=== PATIENT | male | born 1995 | race Caucasian/White ===

== ENCOUNTER 2016-09-17 18:06 | Inpatient (IN) | payer BC, OTHER ==
[~2016-09-17] VITALS: Ht 188 cm; Wt 160.6 kg
[~2016-09-17 18:06] MED LIST: ALBU1AER9 INH
[2016-09-17] MEDS ORDERED: SODIUM CHLORIDE 0.9% 1000ML 2,000 ML IV STA (18:34)
[2016-09-17] MEDS ORDERED: CALC500C3 PO (18:43)
[2016-09-17] MEDS ORDERED: PROAIR INH (18:43)
[2016-09-17] MEDS ORDERED: LSN40 PO (18:43)
[2016-09-17] MEDS ORDERED: HYDR25TA5 PO (18:43)
[2016-09-17] MEDS ORDERED: ONDANSETRON INJ 2 MG/ML 2 ML VIAL IV PRN ×2 (18:45→21:30)
--- NOTE | 2016-09-17 18:47 | EMERGENCY ROOM VISIT NOTE ---
History Report prepared by Almaz: Scotty Hairston Under the Supervision of: Dr. Grant Leung M.D. First contact with patient: 18:14 Chief Complaint: VOMITING Stated Complaint: VOMITING, STOMACH CRAMPS Nursing Triage Summary: Diarrhea. Puking. Can't hold nothing down. Cramps in the stomach. History of Present Illness The patient is a 20 year old male who presents to the Emergency Room with complaints of intermittent diarrhea beginning five days ago. The patient states that there is no blood in his stool; they are just very watery. He reports that for the past 24 hours he has had nausea, vomiting, feeling of dehydration, and cramping abdominal pain. The patient notes that his discomfort fluctuates from a 6/10 to a 10/10 in severity. He states that he has not eaten anything out of the ordinary. The patient reports that he ate chicken salad, but that has not given him issues before. He notes that he has not taken anything for his discomfort other than antacids. The patient states that the antacids have not helped his symptoms. He denies a history of stomach surgeries or problems. The patient notes that he does take blood pressure medication. He reports that his mother had diarrhea and stomach cramping 4 days ago, but it quickly resolved. Source of History: patient Onset: five days ago Position: abdomen Symptom Intensity: 6/10-10/10 Quality: other (diarrhea) Timing: intermittent Associated Symptoms: + nausea, + vomiting, + abdominal pain, No hematochezia Note: Associated symptoms: dehydrated Review of Systems See HPI for pertinent positives & negatives. A total of 10 systems reviewed and were otherwise negative. Past Medical & Surgical Medical Problems: (1) Asthma Family History Cancer Diabetes mellitus Heart disease Hypertension Lung disease Social History Smoking Status: Never Smoker Occupation Status: employed Current/Historical Medications Scheduled Calcium Carbonate (Tums), 1,000 MG PO PRN Hydrochlorothiazide (Hydrochlorothiazide), 25 MG PO DAILY Lisinopril (Lisinopril), 40 MG PO DAILY Scheduled PRN [Proair], 2 PUFF INH Q4 PRN for SOB/Wheezing Allergies Coded Allergies: No Known Allergies (Unverified , 11/14/09) Physical Exam Vital Signs Date Time Temp Pulse Resp B/P (MAP) Pulse Ox O2 Delivery O2 Flow Rate FiO2 09/17/16 18:08 36.8 98 20 138/74 95 Room Air Physical Exam GENERAL: Patient is in no acute distress. HEENT: No acute trauma, normocephalic atraumatic, mucous membranes moist, no nasal congestion, no scleral icterus. NECK: No stridor, no adenopathy, no meningismus, trachea is midline. LUNGS: Clear to auscultation bilaterally, no wheeze, no rhonchi, breath sounds equal. HEART: Mildly tachycardic rate and rhythm, no murmur. ABDOMEN: Soft, diffusely mildly tender, bowel sounds positive, no hernias, no peritonitis. EXTREMITIES: No cyanosis or edema, full range of motion of all the joints without pain or difficulty, no signs for acute trauma. NEUROLOGIC: Oriented x 3, no acute motor or sensory deficits, no focal weakness. SKIN: No rash, no jaundice, no diaphoresis. Medical Decision & Procedures ER Provider Diagnostic Interpretation: X-ray results as stated below per interpretation by me and the radiologist: ABDOMEN 2VIEW W/PA CHEST RTN HISTORY: 20 years-old Male abdominal pain COMPARISON: Chest radiograph 10/22/2014 TECHNIQUE: PA view of the chest with upright and supine views of the abdomen FINDINGS: Cardiomediastinal and hilar silhouettes are within normal limits. No pneumothorax, pleural effusion or focal airspace consolidation. Bones of the chest appear grossly intact. There is no pneumoperitoneum on the upright projection. Bowel gas pattern is nonobstructive with a few air-filled nondilated loops of small bowel in the right mid abdomen. No urolithiasis is identified. No significant degenerative changes or fracture. IMPRESSION: Unremarkable acute abdominal series radiographs. The above report was generated using voice recognition software. It may contain grammatical, syntax or spelling errors. Electronically signed by: Gregory Chase M.D. 09/17/2016 8:17 PM Dictated Date/Time: 09/17/2016 8:14 PM Laboratory Results 09/17/16 18:51 Red Blood Count 6.05, Mean Corpuscular Volume 78.7, Mean Corpuscular Hemoglobin 28.6, Mean Corpuscular Hemoglobin Concent 36.3, Mean Platelet Volume 9.8, Neutrophils (%) (Auto) 71.2, Lymphocytes (%) (Auto) 19.8, Monocytes (%) (Auto) 8.0, Eosinophils (%) (Auto) 0.0, Basophils (%) (Auto) 0.2, Neutrophils # (Auto) 8.41, Lymphocytes # (Auto) 2.34, Monocytes # (Auto) 0.95, Eosinophils # (Auto) 0.00, Basophils # (Auto) 0.02 09/17/16 18:51 Test 09/17/16 18:51 White Blood Count 11.82 K/uL (4.8-10.8) Red Blood Count 6.05 M/uL (4.7-6.1) Hemoglobin 17.3 g/dL (14.0-18.0) Hematocrit 47.6 % (42-52) Mean Corpuscular Volume 78.7 fL (80-100) Mean Corpuscular Hemoglobin 28.6 pg (25-34) Mean Corpuscular Hemoglobin Concent 36.3 g/dl (32-36) Platelet Count 288 K/uL (130-400) Mean Platelet Volume 9.8 fL (7.4-10.4) Neutrophils (%) (Auto) 71.2 % Lymphocytes (%) (Auto) 19.8 % Monocytes (%) (Auto) 8.0 % Eosinophils (%) (Auto) 0.0 % Basophils (%) (Auto) 0.2 % Neutrophils # (Auto) 8.41 K/uL (1.4-6.5) Lymphocytes # (Auto) 2.34 K/uL (1.2-3.4) Monocytes # (Auto) 0.95 K/uL (0.11-0.59) Eosinophils # (Auto) 0.00 K/uL (0-0.5) Basophils # (Auto) 0.02 K/uL (0-0.2) RDW Standard Deviation 38.1 fL (36.4-46.3) RDW Coefficient of Variation 13.5 % (11.5-14.5) Immature Granulocyte % (Auto) 0.8 % Immature Granulocyte # (Auto) 0.10 K/uL (0.00-0.02) Anion Gap 11.0 mmol/L (3-11) Est Creatinine Clear Calc Drug Dose 55.6 ml/min Estimated GFR () 29.3 Estimated GFR (Non- 25.3 BUN/Creatinine Ratio 8.4 (10-20) Calcium Level 10.5 mg/dl (8.5-10.1) Total Bilirubin 0.8 mg/dl (0.2-1) Aspartate Amino Transf (AST/SGOT) 33 U/L (15-37) Alanine Aminotransferase (ALT/SGPT) 53 U/L (12-78) Alkaline Phosphatase 82 U/L (45-117) Total Protein 8.8 gm/dl (6.4-8.2) Albumin 4.7 gm/dl (3.4-5.0) Globulin 4.1 gm/dl (2.5-4.0) Albumin/Globulin Ratio 1.1 (0.9-2) Lipase 113 U/L (73-393) Date/Time Source Procedure Growth Status 09/17/16 18:49 Stool C.difficile Toxin B Gene (PCR) - Final No C. difficile toxin B gene detected Complete Laboratory results reviewed by me. Medications Administered Medications (Trade) Dose Ordered Sig/Heide Route Start Time Stop Time Status Last Admin Dose Admin Sodium Chloride 2,000 ml @ 999 mls/hr Q2H1M STAT IV 09/17/16 18:34 09/17/16 20:34 09/17/16 19:36 999 MLS/HR ED Course 1816: The patient was evaluated in room A12B by the resident under my supervision. A complete history and physical exam was performed. 1834: Ordered Sodium Chloride 2000 ml @ 999 mls/hr IV 1837: I reevaluated the patient and performed a physical exam. 1845: Ordered Zofran Inj 4 mg IV 1937: Upon reexamination the patient is resting. I discussed results and treatment plan with the patient. He verbalizes agreement and understanding. 1950: The resident discussed the patient's case with Dr. Michele, [facility] Hospitalist. The patient will be evaluated for further treatment. Medical Decision Differential diagnosis includes: dehydration, C-Diff, electrolyte imbalance, renal failure, bacterial intestinal infection, viral illness, food borne illness There is a mild leukocytosis, this could be consistent with infection or possibly just his vomiting and diarrhea. No anemia. Renal panel testing shows acute renal failure, potassium is normal. There was no hepatitis. Stool cultures are pending, stool C. difficile test is negative. Obstruction series shows no pneumonia or bowel obstruction, there is no free air. On exam, the patient was not febrile or toxic. There was no peritonitis. The patient received IV Zofran, IV saline. Given the findings of acute renal failure, admission/observation is warranted. Escherichia coli colitis is a consideration especially with the acute renal failure. Further care in the hospital is required. I spoke with the patient and the case technician. The on-call hospitalist was consulted. Consults Time Called: 1941 Consulting Physician: Eryn Rapp Hospitalist Returned Call: 1949 The resident discussed the patient's case with Eryn Rapp. The patient will be evaluated for further treatment. Impression Primary Impression: Acute renal failure Additional Impressions: Dehydration Vomiting and diarrhea Scribe Attestation The scribe's documentation has been prepared under my direction and personally reviewed by me in its entirety. I confirm that the note above accurately reflects all work, treatment, procedures, and medical decision making performed by me. Departure Information Dispostion Being Evaluated By Hospitalist Referrals Brigido Braswell III, M.D. (PCP) Patient Instructions My [facility] Problem Qualifiers
[2016-09-17 19:00] LABS: BASO % 0.2 %; BASO ABS # 0.02 K/uL (0-0.2); COMPLETE YES; HEMATOCRIT 47.6 % (42-52); IG% 0.8 %; LYMPH % 19.8 %; LYMPH ABS # 2.34 K/uL (1.2-3.4); MEAN CELL VOLUME 78.7 fL (80-100); MEAN CORPUSCULAR HEMOGLOBIN 28.6 pg (25-34); MEAN CORPUSCULAR HGB CONC 36.3 g/dl (32-36); MEAN PLATELET VOLUME 9.8 fL (7.4-10.4); NEUT % 71.2 %; PLATELET COUNT 288 K/uL (130-400); RED BLOOD COUNT 6.05 M/uL (4.7-6.1); WHITE BLOOD COUNT 11.82 K/uL (4.8-10.8)
[2016-09-17 19:19] LABS: BUN/CREATININE RATIO 8.4 (10-20); CALCIUM 10.5 mg/dl (8.5-10.1); CREATININE 3.3 mg/dl (0.60-1.40)
[2016-09-17 19:22] LABS: ALB/GLOB RATIO 1.1 (0.9-2)
--- NOTE | 2016-09-17 20:01 | EMERGENCY ROOM VISIT NOTE ---
History First contact with patient: 18:14 Chief Complaint: VOMITING Stated Complaint: VOMITING, STOMACH CRAMPS Nursing Triage Summary: Diarrhea. Puking. Can't hold nothing down. Cramps in the stomach. History of Present Illness The patient is a 20 year old male who presents to the Emergency Room with complaints of N/V and diarrhea. Patient reports 5 day hx of progressive non- bloody diarrhea and associated generalized abdominal cramping ranging from 6-8/ 10. He also reports N/V as of today. He reports mother also had diarrheal symptoms 5 days ago which has since resolved. + subjective fever/chills Review of Systems Pt denies headache, change in vision, fevers, chest pain, shortness of breath, pain with urination, and melena. Past Medical/Surgical History Medical Problems: (1) Acute kidney injury (2) Asthma (3) Hypertension (4) Seizure disorder Family History Cancer Diabetes mellitus Heart disease Hypertension Lung disease Social History Smoking Status: Never Smoker Occupation Status: employed Current/Historical Medications Scheduled Calcium Carbonate (Tums), 1,000 MG PO PRN Ciprofloxacin (Ciprofloxacin HCl), 500 MG PO BID Hydrochlorothiazide (Hydrochlorothiazide), 25 MG PO DAILY Lisinopril (Lisinopril), 40 MG PO DAILY Scheduled PRN [Proair], 2 PUFF INH Q4 PRN for SOB/Wheezing Physical Exam Vital Signs Date Time Temp Pulse Resp B/P (MAP) Pulse Ox O2 Delivery O2 Flow Rate FiO2 09/17/16 20:40 71 18 118/57 97 Room Air 09/17/16 18:08 36.8 98 20 138/74 95 Room Air Physical Exam GENERAL: alert, no distress, EYE EXAM: normal conjunctiva, PERRL and EOM's grossly intact OROPHARYNX: no exudate, no erythema, lips, buccal mucosa, and tongue normal and mucous membranes are moist NECK: supple, no nuchal rigidity, no adenopathy, non-tender LUNGS: Clear to auscultation. Normal chest wall mechanics HEART: tachycardic, no murmurs, S1 normal and S2 normal ABDOMEN: abdomen soft, generalized tenderness, normo-active bowel sounds, no masses, no rebound or guarding. SKIN: no rashes and no bruising UPPER EXTREMITIES: upper extremities are grossly normal. LOWER EXTREMITIES: No pitting edema. NEURO EXAM: Normal sensorium, cranial nerves II-XII grossly intact, normal speech, no gross weakness of arms, no gross weakness of legs. Medical Decision & Procedures Laboratory Results Test 09/17/16 18:51 09/17/16 21:29 Immature Granulocyte % (Auto) 0.8 % White Blood Count 11.82 K/uL (4.8-10.8) Red Blood Count 6.05 M/uL (4.7-6.1) Hemoglobin 17.3 g/dL (14.0-18.0) Hematocrit 47.6 % (42-52) Mean Corpuscular Volume 78.7 fL (80-100) Mean Corpuscular Hemoglobin 28.6 pg (25-34) Mean Corpuscular Hemoglobin Concent 36.3 g/dl (32-36) Platelet Count 288 K/uL (130-400) Mean Platelet Volume 9.8 fL (7.4-10.4) Neutrophils (%) (Auto) 71.2 % Lymphocytes (%) (Auto) 19.8 % Monocytes (%) (Auto) 8.0 % Eosinophils (%) (Auto) 0.0 % Basophils (%) (Auto) 0.2 % Neutrophils # (Auto) 8.41 K/uL (1.4-6.5) Lymphocytes # (Auto) 2.34 K/uL (1.2-3.4) Monocytes # (Auto) 0.95 K/uL (0.11-0.59) Eosinophils # (Auto) 0.00 K/uL (0-0.5) Basophils # (Auto) 0.02 K/uL (0-0.2) Immature Granulocyte # (Auto) 0.10 K/uL (0.00-0.02) Total Bilirubin 0.8 mg/dl (0.2-1) Aspartate Amino Transf (AST/SGOT) 33 U/L (15-37) Alanine Aminotransferase (ALT/SGPT) 53 U/L (12-78) Alkaline Phosphatase 82 U/L (45-117) Total Protein 8.8 gm/dl (6.4-8.2) Albumin 4.7 gm/dl (3.4-5.0) Globulin 4.1 gm/dl (2.5-4.0) Albumin/Globulin Ratio 1.1 (0.9-2) Lipase 113 U/L (73-393) Lab Scanned Report Lab Referral [id number] Date/Time Source Procedure Growth Status 09/17/16 18:49 Stool C.difficile Toxin B Gene (PCR) - Final No C. difficile toxin B gene detected Complete Medications Administered Medications (Trade) Dose Ordered Sig/Heide Route Start Time Stop Time Status Last Admin Dose Admin Sodium Chloride 2,000 ml @ 999 mls/hr Q2H1M STAT IV 09/17/16 18:34 09/17/16 20:34 DC 09/17/16 19:36 999 MLS/HR Medical Decision This is 20 yo M p/w n/v diarrhea, and abdominal discomfort CBC Wt Ct 11.82 BMP Cr 3.3 BUN 28 Abdominal XR Unremarkable Based on presentation along with leukocytosis, gastrointestinal infection is likely either viral or bacterial. C Diff toxin was negative. Abdominal XR rules out obstruction as etiology. CABRERA with Cr of 3.3 is likely prerenal based on lack previous Kidney issues in addition to probably dehydration due to vomiting , diarrhea . Given IV NS Given IV Zofran Case was discussed with hospitalist, Dr Michele who agreed to evaluate the patient for admission and further management Impression Primary Impression: CABRERA (acute kidney injury) Additional Impression: Nausea, vomiting, and diarrhea Departure Information Dispostion Admitted as an inpatient Prescriptions Ciprofloxacin (Ciprofloxacin HCl) 500 Mg Tab 500 MG PO BID for 5 Days, #10 TAB Prov: Rita Armstrong M.D. 09/19/16 Referrals Brigido Braswell III, M.D. (PCP) Patient Instructions My [facility] Problem Qualifiers
--- NOTE | 2016-09-17 20:18 | DIAGNOSTIC IMAGING REPORT ---
ABDOMEN 2VIEW W/PA CHEST RTN HISTORY: 20 years-old Male abdominal pain COMPARISON: Chest radiograph 10/22/2014 TECHNIQUE: PA view of the chest with upright and supine views of the abdomen FINDINGS: Cardiomediastinal and hilar silhouettes are within normal limits. No pneumothorax, pleural effusion or focal airspace consolidation. Bones of the chest appear grossly intact. There is no pneumoperitoneum on the upright projection. Bowel gas pattern is nonobstructive with a few air-filled nondilated loops of small bowel in the right mid abdomen. No urolithiasis is identified. No significant degenerative changes or fracture. IMPRESSION: Unremarkable acute abdominal series radiographs. The above report was generated using voice recognition software. It may contain grammatical, syntax or spelling errors. Electronically signed by: Gregory Chase M.D. 09/17/2016 8:17 PM Dictated Date/Time: 09/17/2016 8:14 PM
--- NOTE | 2016-09-17 21:27 | History and Physical ---
History & Physical Date & Time of Service: Sep 17, 2016 at 21:27 Chief Complaint: Vomiting, Stomach Cramps Primary Care Physician: Brigido Braswell III, M.D. History of Present Illness Source: patient, clinic records, hospital records 20 [address]O male followed by Dr[address] Braswell. History of hypertension and other problems noted below. Became ill 4 days prior to admission with loose stools followed by nausea and vomiting. Had some intermittent crampy abdominal discomfort. No rectal bleeding. Noted chills and sweats, but no fever. . Past Medical/Surgical History Medical Problems: (1) Asthma (2) Hypertension (3) Seizures . Family History Cancer Diabetes mellitus Heart disease Hypertension Lung disease Social History Smoking Status: Never Smoker Alcohol Use: none Occupational Status: employed [employer]Drug [employer] History of MDRO: No Allergies Coded Allergies: No Known Allergies (Unverified , 11/14/09) Home Medications Scheduled Calcium Carbonate (Tums), 1,000 MG PO PRN Hydrochlorothiazide (Hydrochlorothiazide), 25 MG PO DAILY Lisinopril (Lisinopril), 40 MG PO DAILY Scheduled PRN [Proair], 2 PUFF INH Q4 PRN for SOB/Wheezing Review of Systems Constitutional: + chills, + sweats, No fever, No weight loss Eyes: No worsening of vision, No problem reported ENT: No nasal symptoms, No sore throat Respiratory: No cough, No shortness of breath Cardiovascular: No chest pain, No edema Abdomen: + problem reported (as noted above in HPI) Musculoskeletal: + muscle pain (cramps), No joint pain Genitourinary - Male: No hematuria, No dysuria Neurologic: + problem reported (headache) Endocrine: No excessive thirst, No excessive urination Hematologic / Lymphatic: No abnormal bleeding/bruising, No swollen lymph nodes Integumentary: No rash, No new/changing skin lesions Physical Exam Vital Signs Date Time Temp Pulse Resp B/P (MAP) Pulse Ox O2 Delivery O2 Flow Rate FiO2 09/17/16 20:40 71 18 118/57 97 Room Air 09/17/16 18:08 36.8 98 20 138/74 95 Room Air General Appearance: WD/WN, no apparent distress Head: normocephalic, atraumatic Eyes: normal inspection, PERRL, EOMI, sclerae normal ENT: hearing grossly normal, + nasal congestion Neck: supple, no adenopathy, thyroid normal, no JVD, trachea midline Respiratory/Chest: lungs clear, no respiratory distress, no accessory muscle use Cardiovascular: regular rate, rhythm, no edema, no gallop, no JVD, no murmur, normal peripheral pulses Abdomen/GI: normal bowel sounds, non tender, soft, no organomegaly, no pulsatile mass Extremities/Musculoskelatal: no calf tenderness, no pedal edema Neurologic/Psych: doctor of osteopathy II-XII nml as tested (ANANYA ROSAS), alert, normal mood/ affect, oriented x 3 Skin: normal color, warm/dry, no rash Lymphatic: no adenopathy Diagnostics Laboratory Results Results Past 24 Hours Test 09/17/16 18:51 Range/Units White Blood Count 11.82 4.8-10.8 K/uL Red Blood Count 6.05 4.7-6.1 M/uL Hemoglobin 17.3 14.0-18.0 g/dL Hematocrit 47.6 42-52 % Mean Corpuscular Volume 78.7 80-100 fL Mean Corpuscular Hemoglobin 28.6 25-34 pg Mean Corpuscular Hemoglobin Concent 36.3 32-36 g/dl Platelet Count 288 130-400 K/uL Mean Platelet Volume 9.8 7.4-10.4 fL Neutrophils (%) (Auto) 71.2 % Lymphocytes (%) (Auto) 19.8 % Monocytes (%) (Auto) 8.0 % Eosinophils (%) (Auto) 0.0 % Basophils (%) (Auto) 0.2 % Neutrophils # (Auto) 8.41 1.4-6.5 K/uL Lymphocytes # (Auto) 2.34 1.2-3.4 K/uL Monocytes # (Auto) 0.95 0.11-0.59 K/uL Eosinophils # (Auto) 0.00 0-0.5 K/uL Basophils # (Auto) 0.02 0-0.2 K/uL RDW Standard Deviation 38.1 36.4-46.3 fL RDW Coefficient of Variation 13.5 11.5-14.5 % Immature Granulocyte % (Auto) 0.8 % Immature Granulocyte # (Auto) 0.10 0.00-0.02 K/uL Sodium Level 134 136-145 mmol/L Potassium Level 4.0 3.5-5.1 mmol/L Chloride Level 98 98-107 mmol/L Carbon Dioxide Level 25 21-32 mmol/L Anion Gap 11.0 3-11 mmol/L Blood Urea Nitrogen 28 7-18 mg/dl Creatinine 3.30 0.60-1.40 mg/dl Est Creatinine Clear Calc Drug Dose 55.6 ml/min Estimated GFR () 29.3 Estimated GFR (Non- 25.3 BUN/Creatinine Ratio 8.4 10-20 Random Glucose 97 70-99 mg/dl Calcium Level 10.5 8.5-10.1 mg/dl Total Bilirubin 0.8 0.2-1 mg/dl Aspartate Amino Transf (AST/SGOT) 33 15-37 U/L Alanine Aminotransferase (ALT/SGPT) 53 12-78 U/L Alkaline Phosphatase 82 45-117 U/L Total Protein 8.8 6.4-8.2 gm/dl Albumin 4.7 3.4-5.0 gm/dl Globulin 4.1 2.5-4.0 gm/dl Albumin/Globulin Ratio 1.1 0.9-2 Lipase 113 73-393 U/L Microbiology Results 09/17/16 C.difficile Toxin B Gene (PCR) - Final, Complete No C. difficile toxin B gene detected 09/17/16 Shiga Toxin Test, Resulted Pending 09/17/16 Stool Culture, Resulted Pending Diagnostic Radiology ABDOMEN 2VIEW W/PA CHEST RTN HISTORY: 20 years-old Male abdominal pain COMPARISON: Chest radiograph 10/22/2014 TECHNIQUE: PA view of the chest with upright and supine views of the abdomen FINDINGS: Cardiomediastinal and hilar silhouettes are within normal limits. No pneumothorax, pleural effusion or focal airspace consolidation. Bones of the chest appear grossly intact. There is no pneumoperitoneum on the upright projection. Bowel gas pattern is nonobstructive with a few air-filled nondilated loops of small bowel in the right mid abdomen. No urolithiasis is identified. No significant degenerative changes or fracture. IMPRESSION: Unremarkable acute abdominal series radiographs. The above report was generated using voice recognition software. It may contain grammatical, syntax or spelling errors. Electronically signed by: Gregory Chase M.D. 09/17/2016 8:17 PM Dictated Date/Time: 09/17/2016 8:14 PM . Impression Assessment and Plan ACUTE KIDNEY INJURY Serum creatinine 3.3. No history of CKD. Probably due to volume depletion secondary to diarrhea, diuretic therapy, warm weather. IV fluids. Follow. DIARRHEA Check stools for C diff, routine enteric pathogens. HYPERTENSION Hold HCTZ and lisinopril. Follow and titrate Rx. VTE PROPHYLAXIS SQ heparin. Ambulate. DISPOSITION Expected discharge to home. Ambulate. . VTE Prophylaxis Given or contraindicated: Unfractionated heparin SQ
[2016-09-17 22:24] VITALS: BP 129/70; PULSE 72; TEMP 36.6; O2SAT 96; Ht 188 cm; Wt 160.6 kg
[2016-09-18 00:30] VITALS: O2SAT 96
[2016-09-18 07:31] VITALS: BP 147/64; PULSE 61; TEMP 36.8; O2SAT 95
[2016-09-18 07:38] LABS: HEMATOCRIT 44.3 % (42-52); MEAN CELL VOLUME 79.4 fL (80-100); MEAN CORPUSCULAR HEMOGLOBIN 27.1 pg (25-34); MEAN CORPUSCULAR HGB CONC 34.1 g/dl (32-36); MEAN PLATELET VOLUME 9.5 fL (7.4-10.4); PLATELET COUNT 250 K/uL (130-400); RED BLOOD COUNT 5.58 M/uL (4.7-6.1); WHITE BLOOD COUNT 9.34 K/uL (4.8-10.8)
[2016-09-18 07:46] LABS: INR 1.1 (0.9-1.1); PARTIAL THROMBOPLASTIN RATIO 1.2; PROTHROMBIN TIME (PATIENT) 11.3 SECONDS (9.0-12.0)
[2016-09-18 08:00] VITALS: O2SAT 95
[2016-09-18 08:16] LABS: BUN/CREATININE RATIO 15.4 (10-20); CALCIUM 9.1 mg/dl (8.5-10.1); CREATININE 1.6 mg/dl (0.60-1.40); POTASSIUM 3.4 mmol/L (3.5-5.1)
[2016-09-18] MEDS ORDERED: HEPARIN SOD 5000 UNIT/0.5 ML CARP SQ SCH (09:00)
[2016-09-18] MEDS ORDERED: POTASSIUM CHLORIDE 10 MEQ TABCR PO ONE (12:00)
[2016-09-18] MEDS: NSS + 20MEQ KCL 1000ML 1,000 ML IV SCH ×2 (12:25→19:39)
--- NOTE | 2016-09-18 13:59 | Clinical Documentation Query ---
QUERY 1 OF [address] ESPOSITO, In your clinical opinion is this patient being managed for: ( ) morbid obesity with BMI 45.4 ( ) Other explanation of clinical findings (Please Explain) ( ) Unable to determine (Please Define) ( x ) Need to Discuss ( ) Not Agree BMI: A significantly high (>40) or significantly low (<19) BMI will impact the severity of illness and risk of mortality of your patient. However, the physician must document a correlating diagnosis in the medical record. QUERY 2 OF 2 In your clinical opinion is this patient being managed for: (x ) Gastroenteritis/viral gastroenteritis ( ) Other explanation of clinical findings (Please Explain) ( ) Unable to determine (Please Define) ( ) Need to Discuss ( ) Not Agree The medical record reflects the following clinical findings, treatment, and risk factors. Clinical Indicators: 20 yo male presenting with vomiting and diarrhea, stomach cramps. Mother also sick 4 days prior with diarrhea and stomach cramps. Treatment: IV fluids, pending stool cx and shiga toxin Risk Factors: exposure at home to family with similar symptoms. Please clarify and document your clinical opinion in the progress notes and discharge summary. Terms such as "probable", "suspected", "likely", "questionable", "possible", or "still to be ruled out" are acceptable. IF IN AGREEMENT, YOU MUST DOCUMENT ABOVE DIAGNOSTIC STATEMENT IN DAILY PROGRESS NOTES AND DISCHARGE SUMMARY. This document is not part of the patient's record. Thank You, Pina Mcguire, RN [phone]
[2016-09-18 15:24] VITALS: BP 132/76; PULSE 91; TEMP 36.5; O2SAT 96
--- NOTE | 2016-09-18 16:09 | Progress Note ---
Internal Med Progress Note Date of Service: Sep 18, 2016. Provider Documentation: SUBJECTIVE: nausea has resolved, tolerating liquid diet still having loose water diarrhea -multiple times no blood in stool no fever or chills OBJECTIVE: Vital Signs-as noted below Exam: General-no sign of distress Eyes-sclera non icteric ENT-nad Lungs-CTA Heart-regular Abdomen-soft , non tender , bowel sound active Extremities-no rash or deformity Neuro-AAO x3, no focal deficit Lab data as noted below. ASSESSMENT & PLAN: ACUTE KIDNEY INJURY due to pre renal -GI loss with nausea /vomiting /diarrhea , poor PO intake , on combination diuretics for HTN presented with Serum creatinine 3.3. No history of CKD. renal function improving with IVF cont IV fluid resuscitation monitor lytes VIRAL GASTROENTERITIS possible causing GI symptom -watery diarrhea /vomiting stool C diff negative cont supportive care with IV fluids PRN Imodium ordered on clears , advance diet as tolerated Xray of abdomen : no pathology noted HYPERTENSION Hold HCTZ and lisinopril for CABRERA VTE PROPHYLAXIS SQ heparin. Ambulate. DISPOSITION Expected discharge to home. Vital Signs: Date Time Temp Pulse Resp B/P (MAP) Pulse Ox O2 Delivery O2 Flow Rate FiO2 09/18/16 15:24 36.5 91 20 132/76 (94) 96 Room Air 09/18/16 08:00 95 Room Air 09/18/16 07:31 36.8 61 20 147/64 (91) 95 Room Air 09/18/16 00:30 96 Room Air 09/17/16 22:24 36.6 72 14 129/70 96 Room Air 09/17/16 22:07 75 18 98 09/17/16 20:40 71 18 118/57 97 Room Air 09/17/16 18:08 36.8 98 20 138/74 95 Room Air Lab Results: Results Past 24 Hours Test 09/17/16 18:51 09/18/16 07:19 Range/Units White Blood Count 11.82 9.34 4.8-10.8 K/uL Red Blood Count 6.05 5.58 4.7-6.1 M/uL Hemoglobin 17.3 15.1 14.0-18.0 g/dL Hematocrit 47.6 44.3 42-52 % Mean Corpuscular Volume 78.7 79.4 80-100 fL Mean Corpuscular Hemoglobin 28.6 27.1 25-34 pg Mean Corpuscular Hemoglobin Concent 36.3 34.1 32-36 g/dl Platelet Count 288 250 130-400 K/uL Mean Platelet Volume 9.8 9.5 7.4-10.4 fL Neutrophils (%) (Auto) 71.2 % Lymphocytes (%) (Auto) 19.8 % Monocytes (%) (Auto) 8.0 % Eosinophils (%) (Auto) 0.0 % Basophils (%) (Auto) 0.2 % Neutrophils # (Auto) 8.41 1.4-6.5 K/uL Lymphocytes # (Auto) 2.34 1.2-3.4 K/uL Monocytes # (Auto) 0.95 0.11-0.59 K/uL Eosinophils # (Auto) 0.00 0-0.5 K/uL Basophils # (Auto) 0.02 0-0.2 K/uL RDW Standard Deviation 38.1 38.6 36.4-46.3 fL RDW Coefficient of Variation 13.5 13.6 11.5-14.5 % Immature Granulocyte % (Auto) 0.8 % Immature Granulocyte # (Auto) 0.10 0.00-0.02 K/uL Sodium Level 134 135 136-145 mmol/L Potassium Level 4.0 3.4 3.5-5.1 mmol/L Chloride Level 98 100 98-107 mmol/L Carbon Dioxide Level 25 26 21-32 mmol/L Anion Gap 11.0 9.0 3-11 mmol/L Blood Urea Nitrogen 28 25 7-18 mg/dl Creatinine 3.30 1.60 0.60-1.40 mg/dl Est Creatinine Clear Calc Drug Dose 55.6 117.3 ml/min Estimated GFR () 29.3 70.3 Estimated GFR (Non- 25.3 60.7 BUN/Creatinine Ratio 8.4 15.4 10-20 Random Glucose 97 90 70-99 mg/dl Calcium Level 10.5 9.1 8.5-10.1 mg/dl Total Bilirubin 0.8 0.2-1 mg/dl Aspartate Amino Transf (AST/SGOT) 33 15-37 U/L Alanine Aminotransferase (ALT/SGPT) 53 12-78 U/L Alkaline Phosphatase 82 45-117 U/L Total Protein 8.8 6.4-8.2 gm/dl Albumin 4.7 3.4-5.0 gm/dl Globulin 4.1 2.5-4.0 gm/dl Albumin/Globulin Ratio 1.1 0.9-2 Lipase 113 73-393 U/L Prothrombin Time 11.3 9.0-12.0 SECONDS Prothromb Time International Ratio 1.1 0.9-1.1 Activated Partial Thromboplast Time 31.5 21.0-31.0 SECONDS Partial Thromboplastin Ratio 1.2 Microbiology Results 09/17/16 C.difficile Toxin B Gene (PCR) - Final, Complete No C. difficile toxin B gene detected 09/17/16 Shiga Toxin Test - Preliminary, Resulted No E. Coli shiga toxin 1 or shiga tox... 09/17/16 Stool Culture - Preliminary, Resulted
[2016-09-18] MEDS: LOPERAMIDE HCL 2 MG CAP PO PRN (22:26)
[2016-09-18 23:02] VITALS: BP 148/70; PULSE 68; TEMP 36.6; O2SAT 96
[2016-09-19] MEDS: NSS + 20MEQ KCL 1000ML 1,000 ML IV SCH ×3 (01:20→16:13)
[2016-09-19] MEDS: LOPERAMIDE HCL 2 MG CAP PO PRN ×2 (05:27→07:48)
[2016-09-19 07:47] VITALS: BP 124/68; PULSE 82; TEMP 36.6; O2SAT 98
[2016-09-19 08:00] VITALS: O2SAT 95
[2016-09-19 09:20] LABS: BUN/CREATININE RATIO 14.6 (10-20); CALCIUM 8.5 mg/dl (8.5-10.1); CREATININE 1.1 mg/dl (0.60-1.40); POTASSIUM 4.3 mmol/L (3.5-5.1)
[2016-09-19] MEDS ORDERED: CIPROFLOXACIN 500 MG TAB PO ONE (10:00)
--- NOTE | 2016-09-19 11:29 | Progress Note ---
Internal Med Progress Note Date of Service: Sep 19, 2016. Provider Documentation: SUBJECTIVE: still having loose watery diarrhea no blood in stool no abdominal pain or nausea , no fever diet advanced to low residue , tolerating well OBJECTIVE: Vital Signs-as noted below Exam: General-no sign of distress Eyes-sclera non icteric ENT-nad Lungs-CTA Heart-regular Abdomen-soft , non tender , bowel sound active Extremities-no rash or deformity Neuro-AAO x3, no focal deficit Lab data as noted below. ASSESSMENT & PLAN: ACUTE KIDNEY INJURY resolved due to pre renal -GI loss with nausea /vomiting /diarrhea , poor PO intake , on combination diuretics for HTN presented with Serum creatinine 3.3. No history of CKD. Cr 1 today reduce IV fluid to 100 ml /hr ( pt still has ongoing diarrhea , encouraged for PO intake ) SALMONELLA GASTROENTERITIS stool culture + Salmonella started on PO Ciprofloxacin will need 7 days tx pt work at [employer] asked to wash hand thoroughly prior eating ; avoid raw /semi cooked meat /egg Xray of abdomen : no pathology noted HYPERTENSION BP stable Hold HCTZ and lisinopril for CABRERA can be resumed on discharge VTE PROPHYLAXIS Ambulate. DISPOSITION Expected discharge to home tomorrow if diarrhea improves Vital Signs: Date Time Temp Pulse Resp B/P (MAP) Pulse Ox O2 Delivery O2 Flow Rate FiO2 09/19/16 08:00 95 Room Air 09/19/16 07:47 36.6 82 20 124/68 (86) 98 Room Air 09/19/16 00:00 Room Air 09/18/16 23:02 36.6 68 20 148/70 (96) 96 Room Air 09/18/16 20:00 Room Air 09/18/16 16:00 Room Air 09/18/16 15:24 36.5 91 20 132/76 (94) 96 Room Air Lab Results: Results Past 24 Hours Test 09/19/16 07:45 Range/Units Sodium Level 138 136-145 mmol/L Potassium Level 4.3 3.5-5.1 mmol/L Chloride Level 105 98-107 mmol/L Carbon Dioxide Level 26 21-32 mmol/L Anion Gap 7.0 3-11 mmol/L Blood Urea Nitrogen 16 7-18 mg/dl Creatinine 1.10 0.60-1.40 mg/dl Est Creatinine Clear Calc Drug Dose 170.7 ml/min Estimated GFR () 110.6 Estimated GFR (Non- 95.5 BUN/Creatinine Ratio 14.6 10-20 Random Glucose 86 70-99 mg/dl Calcium Level 8.5 8.5-10.1 mg/dl
[2016-09-19] MEDS ORDERED: CPR500 PO (11:33)
--- NOTE | 2016-09-19 11:35 | Discharge Instructions ---
Discharge Instructions Date of Service Sep 19, 2016. Admission Reason for Admission: Acute Kidney Injury Discharge Discharge Diagnosis / Problem: SALMONELLA GASTROENTRITIS /ACUTE RENAL FAILURE / DEHYDRATION Discharge Goals Goal(s): Diagnostic testing, Therapeutic intervention Activity Recommendations Activity Limitations: resume your previous activity Exercise/Sports Limitations: none Shower/Bathe: no limitations Driving or Machine Use: no limitations . Instructions / Follow-Up Instructions / Follow-Up HOSPITAL FOLLOW UP : 09/23/2016 11:00 AM Brigido Braswell III, MD [facility] CONTINUE TO TAKE PRO BIOTICS ( OVER THE COUNTER ) /ACTIVA PROBIOTIC YOGURT WITH EACH MEALS FOR 2 WEEKS WASH HAND THOROUGHLY AFTER USING THE BATHROOM AND BEFORE EACH MEALS PLEASE NOTIFY DR BRASWELL'S OFFICE IF YOU START TO SPIKE FEVER , HAVING ABDOMINAL PAIN ,NAUSEA OR WORSENING OF DIARRHEA SIGNS OF POSSIBLE ONGOING INFECTION Current Hospital Diet Patient's current hospital diet: Low Fiber Diet Discharge Diet Recommended Diet: Low Fiber Diet (2 WEEKS ), Low Lactose Diet Pending Studies Studies pending at discharge: no Medical Emergencies . Who to Call and When: Medical Emergencies: If at any time you feel your situation is an emergency, please call 911 immediately. . Non-Emergent Contact Non-Emergency issues call your: Primary Care Provider . . "Provider Documentation" section prepared by Rita Armstrong. . VTE Core Measure Inpt VTE Proph given/why not?: Unfractionated heparin SQ
[2016-09-19] MEDS: LACTOBACILLUS ACIDOPHILUS (FLORANEX) TAB PO SCH ×2 (12:51→16:14)
[2016-09-19 15:41] VITALS: BP 153/81; PULSE 88; TEMP 36.5; O2SAT 94
[2016-09-19] MEDS: CIPROFLOXACIN 500 MG TAB PO SCH (20:59)
[2016-09-19 23:08] VITALS: BP 154/82; PULSE 78; TEMP 36.6; O2SAT 97
[2016-09-20] MEDS: NSS + 20MEQ KCL 1000ML 1,000 ML IV SCH (02:03)
[2016-09-20 07:13] VITALS: BP 171/78; PULSE 67; TEMP 36.6; O2SAT 98
[2016-09-20 08:12] LABS: BUN/CREATININE RATIO 12.6 (10-20); CALCIUM 8.5 mg/dl (8.5-10.1); CREATININE 1.1 mg/dl (0.60-1.40); POTASSIUM 4.6 mmol/L (3.5-5.1)
[2016-09-20 09:00] VITALS: O2SAT 98
[2016-09-20] MEDS ORDERED: LISINOPRIL 40 MG TAB PO SCH (09:00)
[2016-09-20] MEDS ORDERED: HYDROCHLOROTHIAZIDE 25 MG TAB PO SCH (09:00)
--- NOTE | 2016-09-20 09:06 | Progress Note ---
Internal Med Progress Note Date of Service: Sep 20, 2016. Provider Documentation: SUBJECTIVE: diarrhea a lot better , only one bowel movement today no nausea or abdominal pain , tolerating diet well BP elevated as home antihypertensives -HCTZ /Lisinopril was kept on hold for CABRERA /dehydration will be resumed OBJECTIVE: Vital Signs-as noted below Exam: General-no sign of distress Eyes-sclera non icteric ENT-nad Lungs-CTA Heart-regular Abdomen-soft , non tender , bowel sound active Extremities-no rash or deformity Neuro-AAO x3, no focal deficit Lab data as noted below. ASSESSMENT & PLAN: ACUTE KIDNEY INJURY resolved due to pre renal -GI loss with nausea /vomiting /diarrhea , poor PO intake , on combination diuretics for HTN presented with Serum creatinine 3.3. No history of CKD. Cr 1 D/C IVF SALMONELLA GASTROENTERITIS stool culture + Salmonella started on PO Ciprofloxacin will need total 7 days tx -script sent to Pharmacy pt work at [employer] asked to wash hand thoroughly prior eating ; avoid raw /semi cooked meat /egg Xray of abdomen : no pathology noted pt is counselled for addition of Probiotics HYPERTENSION BP elevated resumed HCTZ and lisinopril VTE PROPHYLAXIS Ambulate. DISPOSITION discharge to home today Vital Signs: Date Time Temp Pulse Resp B/P (MAP) Pulse Ox O2 Delivery O2 Flow Rate FiO2 09/20/16 07:13 36.6 67 18 171/78 (109) 98 Room Air 09/20/16 00:14 Room Air 09/19/16 23:08 36.6 78 18 154/82 (106) 97 Room Air 09/19/16 20:46 Room Air 09/19/16 15:41 36.5 88 18 153/81 (105) 94 Room Air Lab Results: Results Past 24 Hours Test 09/20/16 07:08 Range/Units Sodium Level 142 136-145 mmol/L Potassium Level 4.6 3.5-5.1 mmol/L Chloride Level 109 98-107 mmol/L Carbon Dioxide Level 27 21-32 mmol/L Anion Gap 6.0 3-11 mmol/L Blood Urea Nitrogen 14 7-18 mg/dl Creatinine 1.10 0.60-1.40 mg/dl Est Creatinine Clear Calc Drug Dose 170.7 ml/min Estimated GFR () 110.6 Estimated GFR (Non- 95.5 BUN/Creatinine Ratio 12.6 10-20 Random Glucose 85 70-99 mg/dl Calcium Level 8.5 8.5-10.1 mg/dl
[2016-09-20] MEDS: CIPROFLOXACIN 500 MG TAB PO SCH (10:12)
[2016-09-20] MEDS: LACTOBACILLUS ACIDOPHILUS (FLORANEX) TAB PO SCH ×2 (10:13→11:44)
[2016-09-20 11:45] VITALS: BP 145/76; PULSE 78
--- NOTE | 2016-09-20 13:14 | Discharge Summary ---
Discharge Summary Date of Service Sep 20, 2016. Discharge Summary Admission Date: Sep 17, 2016 at 21:29 Discharge Date: Sep 20, 2016 Discharge Disposition: Home Principal Diagnosis: SALMONELLA GASTROENTERITIS /ACUTE RENAL FAILURE /DEHYDRATION Procedures: XRAY ABDOMEN : IMPRESSION: Unremarkable acute abdominal series radiographs. Medication Reconciliation New Medications: Ciprofloxacin (Ciprofloxacin HCl) 500 Mg Tab 500 MG PO BID for 5 Days, #10 TAB Continued Medications: Calcium Carbonate (Tums) 500 Mg Chew 1000 MG PO PRN Hydrochlorothiazide (Hydrochlorothiazide) 25 Mg Tab 25 MG PO DAILY, #90 Lisinopril (Lisinopril) 40 Mg Tab 40 MG PO DAILY, #90 [Proair] () 2 PUFF INH Q4 PRN for SOB/Wheezing Admission Information HPI (per Admitting provider): 20 [address] male followed by Dr[address] Braswell. History of hypertension and other problems noted below. Became ill 4 days prior to admission with loose stools followed by nausea and vomiting. Had some intermittent crampy abdominal discomfort. No rectal bleeding. Noted chills and sweats, but no fever. . Physical Exam (per Admitting): General Appearance: WD/WN, no apparent distress Head: normocephalic, atraumatic Eyes: normal inspection, PERRL, EOMI, sclerae normal ENT: hearing grossly normal, + nasal congestion Neck: supple, no adenopathy, thyroid normal, no JVD, trachea midline Respiratory/Chest: lungs clear, no respiratory distress, no accessory muscle use Cardiovascular: regular rate, rhythm, no edema, no gallop, no JVD, no murmur , normal peripheral pulses Abdomen/GI: normal bowel sounds, non tender, soft, no organomegaly, no pulsatile mass Extremities/Musculoskelatal: no calf tenderness, no pedal edema Neurologic/Psych: medical information specialist II-XII nml as tested (ALISON, EOMI), alert, normal mood/ affect, oriented x 3 Skin: normal color, warm/dry, no rash Lymphatic: no adenopathy Hospital Course ACUTE KIDNEY INJURY resolved due to pre renal -GI loss with nausea /vomiting /diarrhea , poor PO intake , on combination diuretics for HTN presented with Serum creatinine 3.3. No history of CKD. Cr 1 D/C IVF SALMONELLA GASTROENTERITIS stool culture + Salmonella started on PO Ciprofloxacin will need total 7 days tx -script sent to Pharmacy pt work at [employer] asked to wash hand thoroughly prior eating ; avoid raw /semi cooked meat /egg Xray of abdomen : no pathology noted pt is counselled for addition of Probiotics HYPERTENSION BP elevated resumed HCTZ and lisinopril VTE PROPHYLAXIS Ambulate. DISPOSITION discharge to home today Total time spent on discharge = 35 mi ns This includes examination of the patient, discharge planning, medication reconciliation, and communication with other providers. Discharge Instructions Discharge Instructions Date of Service Sep 19, 2016. Admission Reason for Admission: Acute Kidney Injury Discharge Discharge Diagnosis / Problem: SALMONELLA GASTROENTERITIS /ACUTE RENAL FAILURE /DEHYDRATION Discharge Goals Goal(s): Diagnostic testing, Therapeutic intervention Activity Recommendations Activity Limitations: resume your previous activity Exercise/Sports Limitations: none Shower/Bathe: no limitations Driving or Machine Use: no limitations . Instructions / Follow-Up Instructions / Follow-Up HOSPITAL FOLLOW UP : 09/23/2016 11:00 AM Brigido Braswell III, MD [facility] CONTINUE TO TAKE PRO BIOTICS ( OVER THE COUNTER ) /ACTIVA PROBIOTIC YOGURT WITH EACH MEALS FOR 2 WEEKS WASH HAND THOROUGHLY AFTER USING THE BATHROOM AND BEFORE EACH MEALS PLEASE NOTIFY DR BRASWELL'S OFFICE IF YOU START TO SPIKE FEVER , HAVING ABDOMINAL PAIN ,NAUSEA OR WORSENING OF DIARRHEA SIGNS OF POSSIBLE ONGOING INFECTION Current Hospital Diet Patient's current hospital diet: Low Fiber Diet Discharge Diet Recommended Diet: Low Fiber Diet (2 WEEKS ), Low Lactose Diet Pending Studies Studies pending at discharge: no Medical Emergencies . Who to Call and When: Medical Emergencies: If at any time you feel your situation is an emergency, please call 911 immediately. . Non-Emergent Contact Non-Emergency issues call your: Primary Care Provider . . "Provider Documentation" section prepared by Rita Armstrong. . VTE Core Measure Inpt VTE Proph given/why not?: Unfractionated heparin SQ Additional Copies To Brigido Braswell III, M.D.
[2016-09-20 13:23] VITALS: BP 145/76; PULSE 78; TEMP 36.6; O2SAT 98
== END 2016-09-20 13:55 | disposition home or self-care (01) | DRG 372 ==
LOC: C.EDB 18:06 → C.MS2W 21:29 → ENRESERV 21:33
PROVIDERS: ADMIT Hospitalist; ATTEND Hospitalist
DX: A02.0 Salmonella enteritis (principal); N17.9 Acute kidney failure, unspecified; E86.0 Dehydration; I10 Essential (primary) hypertension; Z83.3 Family history of diabetes mellitus; Z82.49 Family history of ischemic heart disease and other diseases of the circulatory system

== ENCOUNTER 2023-04-06 15:25 | Inpatient (IN) ==
--- NOTE | 2023-04-06 15:34 | ED Triage Note ---
Date of Service April 06, 2023 Provider in Triage Author: Darell Aguilera History of Present Illness This patient was briefly evaluated while in triage. An abbreviated physical exam was performed. This patient is a 27-year-old Male who presents to the ED for evaluation illness recently, seen at urgent care yesterday and tested positive for flu B today had a coughing fit, and passed out and hit head-witnessed, brief LOC Physical Exam GENERAL: NAD CARDIOVASCULAR: RRR RESPIRATORY: breath sounds diminished and wheezes throughout Initial orders for labs and / or imaging were placed and patient was placed in the waiting area until a bed is available. Please see further documentation for the full ED course.
--- NOTE | 2023-04-06 16:20 | XRay Report ---
SINGLE VIEW CHEST CLINICAL HISTORY: Cough FINDINGS: 3 PA chest radiographs are compared to study dated 09/17/2016. The cardiomediastinal silhoue tte is unremarkable. The lungs and pleural spaces are clear. No pneumothorax is seen. The bony thorax is grossly intact. IMPRESSION: No active disease in the chest. ACT 112: Negative or not required by law. Electronically signed by: Grant Hummel M.D. 04/06/2023 4:19 PM
[2023-04-06 17:36] LABS: Basophils # (auto) 0.03 K/uL (0.00-0.20); Basophils % (auto) 0.5 %; Hematocrit (blood only) 50.8 % (42.0-52.0); Immature Granulocytes # (auto) 0.11 K/uL (0.01-0.20); Immature Granulocytes % (auto) 1.9 %; Lymphocytes # (auto) 1.52 K/uL (1.20-3.40); Lymphocytes % (auto) 26.5 %; Mean Corpuscular Hemoglobin 25.4 pg (25.0-34.0); Mean Corpuscular Hgb Conc 31.5 g/dL (32.0-36.0); Mean Corpuscular Volume 80.5 fL (80.0-100.0); Mean Platelet Volume 10.5 fL (9.4-12.4); Monocytes # (auto) 1.06 K/uL (0.11-0.59); Monocytes % (auto) 18.5 %; Neutrophils # (auto) 3.01 K/uL (1.40-6.50); Neutrophils % (auto) 52.6 %; Platelet Count 245 K/uL (130-400); RDW Coefficient of Variation 14.6 % (11.5-14.5); RDW Standard Deviation 41.1 fL (36.4-46.3); Red Blood Count 6.31 M/uL (4.70-6.10); White Blood Count 5.73 K/ul (4.8-10.8)
[2023-04-06 18:07] LABS: Alanine Aminotransferase 40 U/L (7-52); Albumin Globulin Ratio 1.4 (0.9-2); Albumin Level 4.6 gm/dl (3.4-5.0); Alkaline Phosphatase 65 U/L (34-104); BUN Creatinine Ratio 11.5 (10-20); Bilirubin,Total 0.4 mg/dl (0.2-1.0); Blood Urea Nitrogen 10 mg/dl (6-23); Calcium 8.8 mg/dl (8.6-10.3); Carbon Dioxide 28 mmol/L (21-32); Chloride 99 mmol/L (98-107); Est GFR (African American) 136.1 ml/min; Est GFR (Non-African American) 117.5 ml/min; Globulin 3.4 gm/dl (2.5-4.0); Glucose 84 mg/dl (70-99(Fasting)); Troponin I High Sensitivity 7.7 pg/ml (0-20)
[2023-04-06] MEDS: ALBUT/IPRATROP 3MG/0.5MG NEB 3 ML VIAL NEB STA (18:57)
[2023-04-06] MEDS: ALBUT/IPRATROP 3MG/0.5MG NEB 3 ML VIAL ONE (18:58)
--- OUTSIDE RECORDS SUMMARY | 2023-04-06 19:25 | External Medical Summary | Summary of Care ---
Author Name Unknown Organization [facility] Address [address] [place] [address] Phone [phone] Care Team Providers Care Ssis Developer Name Role Phone French NIELSEN MD, Brigido Gunderson Primary Care Provider [phone] Reason for Visit * Reason Onset Date Comments Advice 11/16/2022 Encounter Details Date Type Department Care Team Description 11/16/[address] [facility] [address] [place] [address] Brigido Braswell III, MD [address] [place] [address] Advice Allergies No known active allergiesdocumented as of this encounter (statuses as of 11/20/2022) Medications Medication Sig Dispensed Refills Start Date End Date Status calcium carbonate (TUMS E-X) 187.5 MG CHEW As Needed 0 09/17/2016 Active ProAir HFA 108 (90 Base) MCG/ACT Inhalation Aerosol SolutionIndications:W heezing,History of asthma Inhale by mouth 2 Puffs every 4 hours as needed for Cough, Shortness of Breath or Wheezing. 8 g 1 03/26/2021 Active Ondansetron HCl 4 MG Oral Tablet Take 1 Tablet by mouth every 8 hours as needed for Nausea. 30 Tablet 0 04/08/2022 Active Torsemide 20 MG Oral Tablet (Demadex)Indications: HTN, goal below 140/90,Proteinuria, unspecified type,Pedal edema TAKE 2 TABLETS BY MOUTH ONCE DAILY IN THE MORNING 60 Tablet 5 11/12/2022 Active Lisinopril 40 MG Oral TabletIndications:HTN , goal below 140/90 Take 1 Tablet by mouth at bedtime. 90 Tablet 3 11/12/2022 Active Wegovy 0.25 MG/0.5ML Subcutaneous Solution Auto-injector (Semaglutide-Weight Management) Inject 0.25 mg under the skin once a week for 4 weeks, then increase to 0.5 mg once a week. 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 06/06/2015 11/09/2018 Asthma with severity to be determined 08/19/2009 08/12/2016 Overview: Per Asthma Taxonomy EXTRINSIC ASTHMA, UNSPEC 06/03/2005 010 Other allergic rhinitis 06/03/2005 04/08/19 Overview: ICD-10 update of inactive term Otitis media 01/30/2019 documented as of this encounter (statuses as of 11/20/2022) Immunizations Name Administration Dates Next Due DTaP HIB - Dipth/Tet/Acell Pert/HIB 07/1996,06/24/1995,04/22/1995,02/17 DTaP Dipth/Tet/Acell Pertussis (Infanrix), Peds 09/08/2000 H1N1 2009 Influenza, IM 01/06/2009 Hepatitis B, 0-19 yrs 01/06/1996,04/22/1995,04/1994 IPV - Polio Virus Vaccine (Inact) 09/08/2000 MMR - Measles/Mumps/Rubella Vaccine 09/08/2000,0 04/07/1996 Meningococcal Conjugate Vacc ine (Menactra/Menveo) 08/30/2008 OPV - Polio Virus Vaccine (Oral) 07/28/1996,03/26,02/17/1995 SEASONAL INFLUENZA, PF, 6 M & Above, IM , (FLULAVAL or FLUZONE) 11/09/2018,11/29/2017 Seasonal Influenza, Split, I IV3, With Preserve, Inj 02/18/2010,04/15/2009,01/27/2007,12/19 TD, Preservative Free 11/09/2018 TDAP (age 11 and older)(Adacel) 08/30/2008 Varicella Vaccine (Chicken Pox) 08/30/2008,01/23 documented as of this encounter Social History Tobacco Use Types Packs/Day Years Used Date Smoking Tobacco: Never Smokeless Tobacco: Current Snuff Alcohol Use Standard Drinks/Week Comments No 0 (1 standard drink = 0.6 oz pur e alcohol) Food Insecurity Answer Date Recorded Within the past 12 months, y ou worried that your food would run out before you got money to buy more. Never true 03/08/2019 Within the past 12 months, t he food you bought just didn't last and you didn't have money to get more. Never true 03/08/2019 Sex Assigned at Date Recorded Male 03/08/2019 2:[address] Job Start Date Occupation Industry Not on file Not on file Not on file documented as of this encounter Miscellaneous Notes * Telephone Encounter - BIBI Sierra - 11/20/2022 4:22 PM EDT Patient has been notified of the message. Patient has no further questions. * Telephone Encounter - Reva Sorenson MD - 11/17/2022 10:40 AM EDT Please let patient know he can check with his insurance as to what GLP1 injectable medications are covered for weight loss. If there is something else that is covered I can send in an Rx. * Telephone Encounter - BIBI Cruz - 11/16/2022 1:14 PM EDT Pt states he was seen last week and prescribed Wagovy but it is on backorder and would like to knowif he should wait or try another medication since it has been in high demand for a few months. Please advise: [phone] documented in this encounter Plan of Treatment Upcoming Encounters Date Type Specialty Care Team Description 12/31/2022 Office Visit Family Medicine Reva Sorenson MD [address] [place] [address] 08/04/2023 Office Visit Nephrology Pia Dill MD [address] [place] [address] [place] [id number] Health Maintenance Due Date Last Done Comments COVID-19 Vaccine (#1) 06/24/1995 Depression Screening 03/08/2020 03/08/2019 Influenza Vaccine (FLU shot) (#1) 2022 11/09/2018, 11/29/2017, 02/18/2010, Additional history exists GFR 11/13/2023 11/12/2022, 03/25, 03/26/2021, Additional history exists Albumin/Creatinine Ratio 03/26/2024 03/26/2021 DTaP,Tdap,and Td Vaccines (8 - Td or Tdap) 11/09/2028 11/09/2018, 08/30/2008, 09/08/2000, Additional history exists Hepatitis B Completed 01/06/1996, 03/26, 1994 MENINGOCOCCAL (MENACTRA/MENVEO) Aged Out 08/30/2008 No longer eligible based on patient's age to complete this topic Hepatitis C Screening Completed 04/08/2021 GARDASIL-HPV IMMUNIZATION SERIES Aged Out No longer eligible based on patient's age to complete this topic Pneumococcal Vaccine: Pediatrics (0 to 5 Years) and At-Risk Patients (6 to 64 Years) Aged Out No longer eligible based on patient's age to complete this topic documented as of this encounter Medical Devices Not on filedocumented as of this encounter Care Teams Ssis Developer Relationship Specialty Start Date End Date Brigido Braswell III, MD [address] [place] [address] PCP - General 09/23/00 documented as of this encounter
--- OUTSIDE RECORDS SUMMARY | 2023-04-06 19:25 | External Medical Summary | Summary of Care ---
Author Name Unknown Organization [facility] Address [address] [facility] [place] [place] [address] Phone [phone] Care Team Providers Care Glass Edger Name Role Phone French NIELSEN MD, Brigido Gunderson Primary Care Provider [phone] Reason for Referral * Evaluate & Treat - Unlimited Visits (Within 30 days (routine)) - Pending Review Specialty Diagnoses / Procedures Referred By Karsten dwyer Referred To Contact Nephrology Diagnoses Proteinuria, unspecified type Reva Sorenson MD [address] [place] [address] Referral ID Status Reason Start Date Expiration Date Visits Requested Visits Authorized [id number] Pending Review Specialty Services Required 11/12/[phone] Question Answer Referral Priority Within 30 days (routine) What condition is this patient being seen for? Proteinuria Reason for Visit * Reason Comments Medication Management Encounter Details Date Type Department Care Team Description 11/12/2022 Office Visit Family Practice [facility] Krystin Cavazos [address] [place] [address] Reva Sorenson MD [address] [place] [address] HTN, goal below 140/90*; Proteinuria, unspecified type; BIBI (obstructive sleep apnea); Class 3 severe obesity due to excess calories with serious comorbidity and body mass index (BMI) of 50.0 to 59.9 in adult (HCC); Prediabetes; Pedal edema Allergies No known active allergiesdocumented as of this encounter (statuses as of 11/18/2022) Medications Medication Sig Dispensed Refills Start Date End Date Status calcium carbonate (TUMS E-X) 187.5 MG CHEW As Needed 0 09/17/2016 Active ProAir HFA 108 (90 Base) MCG/ACT Inhalation Aerosol SolutionIndicatio ns:Wheezing,Histo ry of asthma Inhale by mouth 2 Puffs every 4 hours as needed for Cough, Shortness of Breath or Wheezing. 8 g 1 03/26/2021 Active Ondansetron HCl 4 MG Oral Tablet Take 1 Tablet by mouth every 8 hours as needed for Nausea. 30 Tablet 0 04/08/2022 Active Torsemide 20 MG Oral Tablet (Demadex)Indicati ons:HTN, goal below 140/90,Proteinuri a, unspecified type,Pedal edema TAKE 2 TABLETS BY MOUTH ONCE DAILY IN THE MORNING 60 Tablet 5 11/12/2022 Active Lisinopril 40 MG Oral TabletIndications :HTN, goal below 140/90 Take 1 Tablet by mouth at bedtime. 90 Tablet 3 11/12/2022 Active Wegovy 0.25 MG/0.5ML Subcutaneous Solution Auto-injector (Semaglutide-[facility]t Management) Inject 0.25 mg under the skin once a week for 4 weeks, then increase to 0.5 mg once a week. 2 mL 1 11/12/2022 Active Spironolactone 25 MG Oral Tablet (Aldactone) Take by mouth 1 Tablet in the morning. 30 Tablet 5 04/08/2021 11/13/19 23 Discontinued Lisinopril 40 MG Oral Tablet Take 1 Tablet by mouth at bedtime. 90 Tablet 3 04/08/2022 11/13/19 23 Discontinued(Ref ill) Torsemide 20 MG Oral Tablet (Demadex) TAKE 2 TABLETS BY MOUTH ONCE DAILY IN THE MORNING 20 Tablet 0 10/30/2022 11/13/19 23 Discontinued(Ref ill) documented as of this encounter (statuses as of 11/18/2022) Active Problems Problem Noted Date BIBI (obstructive sleep apnea) 04/08/2022 HTN, goal below 130/80 05/28/2016 documented as of this encounter (statuses as of 11/18/2022) Resolved Problems Problem Noted Date Resolved Date [...] as of this encounter (statuses as of 11/18/2022) Immunizations Name Administration Dates Next Due H1N1 2009 Influenza, IM 01/06/2009 Meningococcal Conjugate Vacc ine (Menactra/Menveo) 08/30/2008 Seasonal Influenza, PF, 6 mo ns & Above, IM , (Flulaval) 11/09/2018,11/29/2017 Seasonal Influenza, Split, I IV3, With Preserve, Inj 02/18/2010,04/15/2009,01/27/2007 TD, Preservative Free 11/09/2018 TDAP (age 11 and older)(Adacel) 08/30/2008 Varicella Vaccine (Chicken Pox) 08/30/2008 documented as of this encounter Social History [...] on file documented as of this encounter Last Filed Vital Signs Vital Sign Reading Time Taken Comments Blood Pressure 136/84 11/12/2022 1:52 PM EDT Pulse 83 11/12/2022 1:52 PM EDT Temperature 36.8 C (98.2 F) 11/12/2022 1:52 PM ED T Respiratory Rate 16 11/12/2022 1:52 PM EDT Oxygen Saturation 97% 11/12/2022 1:52 PM EDT Inhaled Oxygen Concentration - - Weight 196.5 kg (433 lb 1.9 oz) 11/12/2022 1:52 PM EDT Height 182.9 cm (6') 11/12/2022 1:52 PM EDT Body Mass Index 58.74 11/12/2022 1:52 PM EDT documented in this encounter Progress Notes * Reva Sorenson MD - 11/12/2022 2:09 PM EDT Subjective Chief Complaint Patient presents with Medication Management HPI: Tyrese Dodson is a 26 year old male. The following issues were addressed today: Patient is here for routine follow-up and medication refills. The patient's past medical history, surgical history, family history, social history, medications, and allergies were reviewed. Was seeing nephrology in [place] for proteinuria. Prescribed torsemide and spironolactone, but currently only taking torsemide. Would like to continue to follow with nephrology but difficult for him to drive all the way to [place]. Pedal edema improved with torsemide. Recent BMP showed normal kidney function. Taking lisinopril for hypertension. Fairly well-controlled. Supposed to be wearing CPAP for BIBI but never got equipment. Body mass index is 58.74 kg/m. Was planning on getting bariatric surgery but with work could not make weight management classes. Would like to discuss medication options. Review of Systems: See HPI Objective BP 136/84 | Pulse 83 | Temp 36.8 C (98.2 F) (Tympanic) | Resp 16 | Ht 1.829 m (6') | Wt (!) 196.5 kg (433 lb 1.9 oz) | SpO2 97% | BMI 58.74 kg/m | BSA 3.16 m General: Well-appearing, no acute distress HENT: Head is normocephalic and atraumatic, no pharyngeal erythema, nose normal, ear canals normal and tympanic membranes clear bilaterally Eyes: No conjunctival injection, no scleral icterus Cardiovascular: Regular rate and rhythm, no murmur Respiratory: Good respiratory effort, breath sounds equal and clear to auscultation bilaterally Extremities: No edema Skin: Warm and dry Neurological: Alert and oriented, no focal deficits noted Psychiatric: Appropriate mood and affect The following labs/studies were reviewed: Hgb A1c, BMP, lipid panel Assessment & Plan 1. HTN, goal below 140/90 Well-controlled. Continue current medication(s). - Torsemide 20 MG Oral Tablet (Demadex); TAKE 2 TABLETS BY MOUTH ONCE DAILY IN THE MORNING Dispense: 60 Tablet; Refill: 5 - Lisinopril 40 MG Oral Tablet; Take 1 Tablet by mouth at bedtime. Dispense: 90 Tablet; Refill: 3 - BASIC METABOLIC PANEL; Future 2. Proteinuria, unspecified type Nephrology referral ordered. - Torsemide 20 MG Oral Tablet (Demadex); TAKE 2 TABLETS BY MOUTH ONCE DAILY IN THE MORNING Dispense: 60 Tablet; Refill: 5 - NEPHROLOGY REFERRAL OP 3. BIBI (obstructive sleep apnea) Patient will reach out to sleep clinic to discuss CPAP equipment. 4. Class 3 severe obesity due to excess calories with serious comorbidity and body mass index (BMI)of 50.0 to 59.9 in adult (HCC) Discussed medication options for weight loss, including GLP1s. Will start Wegovy. We discussed common side effects and administration. The patient does not have any contraindications. Follow-up closely, titrate up as tolerated monthly. - HEMOGLOBIN A1C; Future - LIPID PANEL WITH DIRECT LDL IF TG IS HIGH; Future 5. Prediabetes Check Hgb A1c yearly. - HEMOGLOBIN A1C; Future 6. Pedal edema Well-controlled. Continue current medication(s). - Torsemide 20 MG Oral Tablet (Demadex); TAKE 2 TABLETS BY MOUTH ONCE DAILY IN THE MORNING Dispense: 60 Tablet; Refill: 5 Follow Up: Return in about 6 weeks (around 2022) for follow-up. This note was electronically signed by Reva Sorenson MD documented in this encounter Nursing Notes * Yahaira Thakur LPN - 11/12/2022 1:49 PM EDT Tyrese Dodson presents for medication recheck. Medications & HM reviewed. Denies any concerns at this time documented in this encounter Plan of Treatment Upcoming Encounters Date Type Specialty Care Team Description 12/31/2022 Office Visit Family Medicine Reva Sorenson MD [address] [place], [place] [id number] 08/04/2023 Office Visit Nephrology Pia Dill MD [address] [place] [id number] Scheduled Referrals Name Type Priority Associated Diagnoses Orde r Schedule NEPHROLOGY REFERRAL OP Referral Within 30 days (routine) Proteinuria, unspecified type Ordered: 11/12/2022 Health Maintenance Due Date Last Done Comments [...] Not on filedocumented as of this encounter Results * LIPID PANEL WITH DIRECT LDL IF TG IS HIGH (11/12/2022 2:29 PM EDT) Triglycerides 106 <=174 mg/dL 11/12/2022 10:18 PM EDT [facility] Comment: Triglyceride Reference Ranges (mg/dL): <150 Acceptable 150-174 Borderline high 175-499 High >=500 Very high Cholesterol 178 <200 mg/dL 11/12/2022 10:18 PM EDT [facility] Comment: Total Cholesterol Reference Ranges (mg/dL): <200 Desirable 200-239 Borderline high >=240 High HDL Cholesterol 44 >39 mg/dL 10:18 PM EDT [facility] Comment: HDL Cholesterol Reference Ranges (mg/dL): >=60 High (Desirable) <50 Low (Undesirable) For Females <40 Low (Undesirable) For Males Non-HDL Cholesterol 134 <=159 mg/dL 11/12/2022 10:18 PM EDT [facility] Comment: Non-HDL Cholesterol Reference Range (mg/dL): <100 Target level for high risk ASCVD patient <130 Optimal for general population 130-159 Near optimal for general population 160-189 Borderline High 190-219 High >=220 Very High LDL Cholesterol 113 <=129 mg/dL 11/12/2022 10:18 PM EDT [facility] Comment: LDL Cholesterol Reference Ranges (mg/dL): <70 Target level for high risk ASCVD patient <100 Optimal for general population 100-129 Near optimal for general population 130-159 Borderline high 160-189 High >=190 Very high Blood Venous blood specimen / Unknown Venipuncture / Unknown 11/12/2022 2:29 PM EDT 11/12/2022 2:29 PM EDT Reva Sorenson MD LAB BLOOD ORDERABLES [facility] [address] [place] [address] * HEMOGLOBIN A1C (11/12/2022 2:29 PM EDT) Pathologist [facility] Hemoglobin A1C 5.6 4.0 - 5.6 % 11/12/2022 10:22 PM EDT [facility] Comment:The use of HbA1c to monitor glycemic status is based on normal hemoglobin and HbA composition. This test should not be used in patients with abnormal hemoglobin that affects the half life of the red blood cell or the in vivo glycation rates. Estimated Average Glucose 114 <126 mg/dL 11/12/2022 10:22 PM EDT [facility] Blood Venous blood specimen / Unknown Venipuncture / Unknown 11/12/2022 2:29 PM EDT 11/12/2022 2:29 PM EDT Reva Sorenson MD LAB BLOOD ORDERABLES Performing Organization Address City/State/[facility] Co de Phone Number LABORATORY [address] [address] * BASIC METABOLIC PANEL (11/12/2022 2:29 PM EDT) Pathologist [facility] BUN 17 6 - 20 mg/dL 11/12/2022 3:45 PM EDT [facility] 56- Creatinine 0.9 0.6 - 1.2 mg/dL 11/12/2022 3:45 PM EDT [facility] 56- Estimated Glomerular Filtration Rate >90 >=60 mL/min 11/12/2022 3:45 PM EDT [facility] 56- Comment:eGFR is calculated b ased on the CKD-EPI 2020 equation Sodium 143 135 - 146 mmol/L 11/12/2022 3:45 PM EDT [facility] 56- Potassium 4.5 3.5 - 5.1 mmol/L 11/12/2022 3:45 PM EDT [facility] 56- Chloride 101 98 - 107 mmol/L 11/12/2022 3:45 PM EDT [facility] 56- CO2 29 22 - 32 mmol/L 11/12/2022 3:45 PM EDT [facility] 56- Anion Gap 13 7 - 15 mmol/L 11/12/2022 3:45 PM EDT [facility] 56 Glucose 78 70 - 120 mg/dL 11/12/2022 3:45 PM EDT [facility] 56 Calcium 10.0 8.4 - 10.2 mg/dL 11/12/2022 3:45 PM EDT [facility] 56 Blood Venous blood specimen / Unknown Venipuncture / Unknown 11/12/2022 2:29 PM EDT 11/12/2022 2:29 PM EDT Reva Sorenson MD LAB BLOOD ORDERABLES [facility] [address] [facility] [place] [address] documented in this encounter Visit Diagnoses Diagnosis HTN, goal below 140/90- Primary Unspecified essential hypertension Proteinuria, unspecified type BIBI (obstructive sleep apnea) Obstructive sleep apnea (adult) (pediatric) Class 3 severe obesity due to excess calories with serious comorbidity and body mass index (BMI) of 50.0 to 59.9 in adult (HCC) Prediabetes Other abnormal glucose Pedal edema Edema documented in this encounter Care Teams Glass Edger Relationship Specialty Start Date End Date Brigido Braswell III, MD [address] [facility], [place] [id number] PCP - General 09/23/00 documented as of this encounter"
--- OUTSIDE RECORDS SUMMARY | 2023-04-06 19:26 | External Medical Summary | Summary of Care ---
Author Name Unknown Organization [facility] Address [address] [facility] [address] Phone [phone] Care Team Providers Care Smt Machine Operator Name Role Phone Fernch NIELSEN MD, Brigido Gunderson Primary Care Provider [phone] Reason for Visit * Reason Comments Outpatient Testing Encounter Details Date Type Department Care Team Description 11/12/2022 Laboratory [facility] [place] [place] [address] [place] [address] [facility] [address] [place] [address] HTN, goal below 140/90; Class 3 severe obesity due to excess calories with serious comorbidity and body mass index (BMI) of 50.0 to 59.9 in adult (HCC); Prediabetes Allergies No known active allergiesdocumented as of this encounter (statuses as of 11/12/2022) Medications Medication Sig Dispensed Refills Start Date End Date Status calcium carbonate (TUMS E-X) 187.5 MG CHEW As Needed 0 09/17/2016 Active ProAir HFA 108 (90 Base) MCG/ACT Inhalation Aerosol SolutionIndications:W adolfo,History of asthma Inhale by mouth 2 Puffs [...] as of this encounter (statuses as of 11/12/2022) Active Problems Problem Noted Date BIBI (obstructive sleep apnea) 04/08/2022 HTN, goal below 130/80 05/28/2016 documented as of this encounter (statuses as of 11/12/2022) Resolved Problems Problem Noted Date Resolved Date [...] as of this encounter (statuses as of 11/12/2022) Immunizations Name Administration Dates Next Due H1N1 [...] on file documented as of this encounter Plan of Treatment Upcoming Encounters Date Type Specialty Care Team Description 12/31/2022 Office Visit Family Medicine Reva Sorenson MD [address] [place] [address] 08/04/2023 Office Visit Nephrology Pia Dill MD [address] [place] [phone] Pending Results Name Type Priority Associated Diagnoses Date /Time BASIC METABOLIC PANEL Lab Routine HTN, goal below 140/90 11/12/2022 2:29 PM EDT HEMOGLOBIN A1C Lab Routine Class 3 severe obesity due to excess calories with serious comorbidity and body mass index (BMI) of 50.0 to 59.9 in adult ([facility]) Prediabetes 11/12/2022 2:29 PM EDT LIPID PANEL WITH DIRECT LDL IF TG IS HIGH Lab Routine Class 3 severe obesity due to excess calories with serious comorbidity and body mass index (BMI) of 50.0 to 59.9 in adult (HCC) 11/12/2022 2:29 PM EDT Health Maintenance Due Date Last Done Comments COVID-19 Vaccine (#1) 06/24/1995 Depression Screening 03/08/2020 03/08/2019 Influenza Vaccine (FLU shot) (#1) 2022 11/09/2018, 11/29/2017, 02/18/2010, Additional history exists GFR 04/08/2023 04/08/2022, 03/2021, 12/21/2018, Additional history exists Albumin/Creatinine Ratio 03/26/2024 03/26/2021 [...] Not on filedocumented as of this encounter Visit Diagnoses Diagnosis HTN, goal below 140/90 Unspecified essential hypertension Class 3 severe obesity due to excess calories with serious comorbidity and body mass index (BMI) of 50.0 to 59.9 in adult (HCC) Prediabetes Other abnormal glucose documented in this encounter Care Teams Smt Machine Operator Relationship Specialty Start Date End Date Brigido Braswell III, MD [address] [facility] [place] [address] PCP - General 09/23/00 documented as of this encounter
--- OUTSIDE RECORDS SUMMARY | 2023-04-06 19:26 | External Medical Summary | Summary of Care ---
Author Name Unknown Organization [facility] Address [address] [facility] [address] Phone [phone] Care Team Providers Care Firer Watertender Name Role Phone French NIELSEN MD, Marcie Gunderson Primary Care Provider [phone] Reason for Visit * Reason Onset Date Comments Medication Refill 10/21/2022 Encounter Details Date Type Department Care Team Description 10/21/2022 Refill [facility] [address] [facility] [place] [place] [address] Marcie Russell III, MD [address] [facility] [place] [address] Allergies No known active allergiesdocumented as of this encounter (statuses as of 10/30/2022) Medications Medication Sig Dispensed Refills Start Date End Date Status calcium carbonate (TUMS E-X) 187.5 MG CHEW As Needed 0 09/17/2016 Active ProAir HFA 108 (90 Base) MCG/ACT Inhalation Aerosol SolutionIndicatio ns:Wheezing,Histo ry of asthma Inhale by mouth 2 Puffs every 4 hours as needed for Cough, Shortness of Breath or Wheezing. 8 g 1 03/26/2021 Active Spironolactone 25 MG Oral Tablet (Aldactone) Take by mouth 1 Tablet in the morning. 30 Tablet 5 04/08/2021 Active Lisinopril 40 MG Oral Tablet Take 1 Tablet by mouth at bedtime. 90 Tablet 3 04/08/2022 Active Ondansetron HCl 4 MG Oral Tablet Take 1 Tablet by mouth every 8 hours as needed for Nausea. 30 Tablet 0 04/08/2022 Active Torsemide 20 MG Oral Tablet (Demadex) TAKE 2 TABLETS BY MOUTH ONCE DAILY IN THE MORNING 20 Tablet 0 10/30/2022 Active Torsemide 20 MG Oral Tablet (Demadex) TAKE 2 TABLETS BY MOUTH ONCE DAILY IN THE MORNING 60 Tablet 0 09/15/2022 10/21/2022 Discontinued (Refill) Torsemide 20 MG Oral Tablet (Demadex) TAKE 2 TABLETS BY MOUTH ONCE DAILY IN THE MORNING 20 Tablet 0 10/21/2022 10/30/2022 Discontinued (Refill) documented as of this encounter (statuses as of 10/30/2022) Active Problems Problem Noted Date Super-super obese 04/08/2022 BIBI (obstructive sleep apnea) 04/08/2022 HTN, goal below 130/80 05/28/2016 documented as of this encounter (statuses as of 10/30/2022) Resolved Problems Problem Noted Date Resolved Date [...] as of this encounter (statuses as of 10/30/2022) Immunizations Name Administration Dates Next Due DTaP HIB - Dipth/Tet/Acell Pert/HIB 07/1996,06/24/1995,04/22/1995,02/17 DTaP Dipth/Tet/Acell Pertussis (Infanrix), Peds 09/08/2000 H1N1 2008 Influenza, IM 01/06/2009 Hepatitis B, 0-19 yrs 01/06/1996,04/22/1995,04/1994 IPV - Polio Virus Vaccine (Inact) 09/08/2000 MMR - Measles/Mumps/Rubella Vaccine 09/08/2000,0 04/07/1996 Meningococcal Conjugate Vacc ine (Menactra/Menveo) 08/30/2008 OPV - Polio Virus Vaccine (Oral) 07/28/1996,03/26,02/17/1995 Seasonal Influenza, PF, 6 mo ns & [...] encounter Miscellaneous Notes * Telephone Encounter - Marcie Russell III, MD - 10/30/2022 7:47 AM EDTSigned Prescriptions: Disp Refills Torsemide 20 MG Oral Tablet (Demadex) 20 Tab*0 Sig: TAKE 2 TABLETS BY MOUTH ONCE DAILY IN THE MORNINGAuthorizing Provider: MARCIE RUSSELL III * Addendum Note - Marcie Russell III, MD - 10/30/2022 7:47 AM EDTAddended by: MARCIE RUSSELL on: 10/30/2022 07:47 AM Modules accepted: Orders * Addendum Note - Pollo Rhodes LPN - 10/30/2022 7:22 AM EDTAddended by: POLLO RHODES on: 10/30/2022 07:22 AM Modules accepted: Orders * Telephone Encounter - Pollo Rhodes LPN - 10/30/2022 7:22 AM EDT Next Office Visit: 11/12/2022 * Telephone Encounter - RUTH Hilario Tech - 10/29/2022 5:55 PM EDT Transferred pt to scheduling for appt. Pt calling in for refill on Torsemide. Pt has 2 days left of medication. He is leaving for out of town for work on Wednesday morning so unable to come in for an appt at this time. He will not be back in town until the following Wednesday and will set up an appt now for after he is back in town. Pt is asking if he can get medication to take while he is away for work until able to make appt once back. Pt uses [facility] [id number] [facility] If any questions can be reached at [phone]. Please review and advise. Thank You, Melisa Rosario [facility] Worker II [facility] ([facility]) (Formerly Telepharmacy) 10/29/2022, 5:57 PM * Telephone Encounter - Kate Grajeda LPN - 10/22/2022 8:32 AM EDT Please assist pt in scheduling an appt per Dr. Russell's message below. * Telephone Encounter - Marcie Russell III, MD - 10/21/2022 12:10 PM EDTSigned Prescriptions: Disp Refills Torsemide 20 MG Oral Tablet (Demadex) 20 Tab*0 Sig: TAKE 2 TABLETS BY MOUTH ONCE DAILY IN THE MORNING Authorizing Provider: MARCIE RUSSELL III * Telephone Encounter - Marcie Russell III, MD - 10/21/2022 12:10 PM EDT Needs appointment * Telephone Encounter - Yahaira Thakur LPN - 10/21/2022 10:01 AM EDT Did you pend patient's preferred pharmacy and medication before forwarding?yes Pharmacy: [facility] [address] Pending Prescriptions: Disp Refills Torsemide 20 MG Oral Tablet (Demadex) 60 Tab*0 Sig: TAKE 2 TABLETS BY MOUTH ONCE DAILY IN THE MORNING Last Visit: 03/26/2021 (in office), Visit date not found (telemedicine) Next Visit: Visit date not found If no future appointments scheduled, and last appointment is greater than a year ago, please schedule patient for a follow-up appointment Last date the medication was ordered: 09/15/22 Is this request for a controlled substance?No Urine Drug Screen:No results found for this or any previous visit. Patient Phone Numbers Labs: Lab Results Component Value Date/Time CREAT 1.0 04/08/2022 10:50 AM CREAT 1.0 12/21/2018 04:55 PM POTASSIUM 4.1 04/08/2022 10:50 AM POTASSIUM 4.8 12/21/2018 04:55 PM TSH 3.02 08/12/2016 08:21 AM LDLCALC 96 08/12/2016 08:21 AM LDLDIRECT NOT APPLICABLE 08/12/2016 08:21 AM ALT 46 04/08/2022 10:50 AM ALT 45 12/21/2018 04:55 PM HGBA1C 6.1 (H) 03/26/2021 11:06 AM * Telephone Encounter - Susy Carbajal CPhT - 10/21/2022 9:44 AM EDT Patient calling to request a refill on Torsemide. Medication was last prescribed by Nephrology but patient is asking if PCP can take over the medication. Please advise if this is appropriate and sendto [facility] [id number] if agreeable. Thank you, Susy Carbajal Regional Guide [facility] ([facility]) (Formerly Telepharmacy) 10/21/2022,9:46 AM documented in this encounter Plan of Treatment Upcoming Encounters Date Type Specialty Care Team Description 11/12/2022 Office Visit Family Medicine Reva Sorenson MD [address] [place] [address], [place] [address] Health Maintenance Due Date Last Done Comments [...] filedocumented as of this encounter Care Teams Firer Watertender Relationship Specialty Start Date End Date Marcie Russell III, MD [address] [facility] [place] [address] PCP - General 09/23/00 documented as of this encounter
--- OUTSIDE RECORDS SUMMARY | 2023-04-06 19:26 | External Medical Summary ---
Author Name Unknown Address Unknown Organization K09:[facility] [address] Laboratory Report Ordering Provider Test Date Status BETTINA GREGORY 11/12/2022 14:29:41 Final Observation Date Value Abnormality Reference (Units ) Status BUN 11/12/2022 14:29:41 17 6-20 (mg/dL) Final Creatinine 11/12/2022 14:29:41 0.9 0.6-1.2 (mg/dL) Final Glomerular filtration rate/1.73 sq M.predicted [Volume Rate/Area] in Serum, Plasma or Blood by Creatinine-based formula (CKD-EPI) 11/12/2022 14:29:41 >90 >=60 (mL/min) Final eGFR is calculated based on the CKD-EPI 2020 equation SODIUM 11/12/2022 14:29:41 143 135-146 (m mol/L) Final Potassium 11/12/2022 14:29:41 4.5 3.5-5.1 (m mol/L) Final Cl 11/12/2022 14:29:41 101 98-107 (mm ol/L) Final CO2 11/12/2022 14:29:41 29 22-32 (mmo l/L) Final Anion gap 11/12/2022 14:29:41 13 7-15 (mmol /L) Final Glucose 11/12/2022 14:29:41 78 70-120 (mg /dL) Final Calcium 11/12/2022 14:29:41 10.0 8.4-10.2 ( mg/dL) Final Performing Location [facility] [address]
--- OUTSIDE RECORDS SUMMARY | 2023-04-06 19:26 | External Medical Summary | Summary of Care ---
Author Name Unknown Organization [facility] Address [address] [facility] [address] Phone [phone] Care Team Providers Care Concaving Machine Operator Name Role Phone French NIELSEN MD, Brigido Gunderson Primary Care Provider [phone]- [phone] Reason for Visit * Reason Onset Date Comments Med Request 10/08/2022 Encounter Details Date Type Department Care Team Description 10/08/2022 Telephone Family Practice [facility] [address] [place] [address] Brigido Braswell III, MD 200 [place] [address] Med Request Allergies No known active allergiesdocumented as of this encounter (statuses as of 10/13/2022) Medications Medication Sig Dispensed Refills Start Date End Date Status calcium carbonate (TUMS E-X) 187.5 MG CHEW As Needed 0 09/17/2016 Active ProAir HFA 108 (90 Base) MCG/ACT Inhalation Aerosol SolutionIndications: Wheezing,History of asthma Inhale by mouth 2 Puffs [...] IN THE MORNING 60 Tablet 0 09/15/2022 Active documented as of this encounter (statuses as of 10/13/2022) Active Problems Problem Noted Date Super-super obese 04/08/2022 BIBI (obstructive sleep apnea) 04/08/2022 HTN, goal below 130/80 05/28/2016 documented as of this encounter (statuses as of 10/13/2022) Resolved Problems Problem Noted Date Resolved Date [...] as of this encounter (statuses as of 10/13/2022) Immunizations Name Administration Dates Next Due DTaP - Dipth/Tet/Acell Pertussis 09/08/2000 DTaP HIB - Dipth/Tet/Acell Pert/HIB 07/1996,06/24/1995,04/22/1995,02/17 H1N1 2009 Influenza, IM 01/06/2009 Hepatitis B, [...] Miscellaneous Notes * Telephone Encounter - BIBI Ceja - 10/13/2022 9:19 AM EDT Several attempts Letter sent * Telephone Encounter - BIBI Ceja - 10/12/2022 11:13 AM EDT Lmom 10/12 2nd attempt * Telephone Encounter - BIBI Ceja - 10/09/2022 10:47 AM EDT My g sent 10/09 * Telephone Encounter - Rosemarie Rutherford DO - 10/08/2022 2:44 PM EDT Appt needed * Telephone Encounter - Kate Grajeda LPN - 10/08/2022 11:44 AM EDT Ok for antibiotic, please advise. * Telephone Encounter - Loretta Cohn CPhT - 10/08/2022 11:39 AM EDT Pt calling with complaints of tooth abscess and is requesting a medication be prescribed. Patient can not get into dentist anytime soon. Pt did not want to schedule an appointment at this time. Thank you, Loretta Cohn, Driver'S Education Instructor I Centralized Clinical Pharmacy Services (Formerly Telepharmacy) 10/08/2022, 11:39 AM documented in this encounter Plan of Treatment Health Maintenance Due Date Last Done Comments COVID-19 Vaccine (#1) 06/24/1995 Depression Screening, Annual for Pts 12 and Over 03/08/2020 03/08/2019 Influenza Vaccine (FLU shot) (#1) [...] filedocumented as of this encounter Care Teams Concaving Machine Operator Relationship Specialty Start Date End Date Brigido Braswell III, MD 200 [facility] [place] [address] PCP - General 09/23/00 documented as of this encounter
--- OUTSIDE RECORDS SUMMARY | 2023-04-06 19:26 | External Medical Summary | Summary of Care ---
Author Name Unknown Organization [facility] Address [address] [facility] [place] [address] Phone [phone] Care Team Providers Care Tool Machine Shop Supervisor Name Role Phone French NIELSEN MD, Brigido Gunderson Primary Care Provider [phone]- [phone] Reason for Visit * Reason Onset Date Comments Med Request 10/08/2022 Encounter Details Date Type Department Care Team Description 10/08/2022 Telephone Family Practice [facility] [address] [place] [address] Brigido Braswell III, MD 200 [facility] [place] [address] Med Request Allergies No known active allergiesdocumented as of this encounter (statuses as of 10/12/2022) Medications Medication Sig Dispensed Refills Start Date [...] as of this encounter (statuses as of 10/12/2022) Active Problems Problem Noted Date Super-super obese 04/08/2022 BIBI (obstructive sleep apnea) 04/08/2022 HTN, goal below 130/80 05/28/2016 documented as of this encounter (statuses as of 10/12/2022) Resolved Problems Problem Noted Date Resolved Date [...] as of this encounter (statuses as of 10/12/2022) Immunizations Name Administration Dates Next Due DTaP [...] at this time. Thank you, Loretta Cohn, Residential Counselor I Centralized Clinical Pharmacy Services (Formerly Telepharmacy) [...] filedocumented as of this encounter Care Teams Tool Machine Shop Supervisor Relationship Specialty Start Date End Date Brigido Braswell III, MD 200 [facility] [place] [address] PCP - General 09/23/00 documented as of this encounter
--- OUTSIDE RECORDS SUMMARY | 2023-04-06 19:26 | External Medical Summary | Summary of Care ---
Author Name Unknown Organization [facility] Address [address] [facility] [address] Phone [phone] Care Team Providers Care Manager Star Name Role Phone French NIELSEN MD, Marcie Gunderson Primary Care Provider [phone] Reason for Visit * Reason Onset Date Comments Medication Refill 10/21/2022 Encounter Details Date Type Department Care Team Description 10/21/2022 Refill [facility] 200 [place] [address] Marcie Russell III, MD 200 [place] [address] Allergies No known active allergiesdocumented as of this encounter (statuses as of 10/22/2022) Medications Medication Sig Dispensed Refills Start Date [...] IN THE MORNING 20 Tablet 0 10/21/2022 Active Torsemide 20 MG Oral Tablet (Demadex) TAKE 2 TABLETS BY MOUTH ONCE DAILY IN THE MORNING 60 Tablet 0 09/15/2022 10/21/2022 Discontinued (Refill) documented as of this encounter (statuses as of 10/22/2022) Active Problems Problem Noted Date Super-super obese 04/08/2022 BIBI (obstructive sleep apnea) 04/08/2022 HTN, goal below 130/80 05/28/2016 documented as of this encounter (statuses as of 10/22/2022) Resolved Problems Problem Noted Date Resolved Date [...] as of this encounter (statuses as of 10/22/2022) Immunizations Name Administration Dates Next Due H1N1 [...] preferred pharmacy and medication before forwarding?yes Pharmacy: [facility] [address] [place] [address] Pending Prescriptions: Disp Refills Torsemide 20 MG [...] if this is appropriate and sendto E [facility] [address] [place] [address] if agreeable. Thank you, Susy Carbajal Spine Nurse Centralized Clinical Pharmacy Services (CCPS) (Formerly Telepharmacy) 10/21/2022,9:46 AM documented in this encounter Plan of Treatment Health Maintenance Due Date Last Done Comments COVID-19 Vaccine (#1) 06/24/1995 Depression Screening, Annual for Pts 12 and Over 03/08/2020 03/08/2019 Influenza Vaccine (FLU shot) (#1) 2022 11/09/2018, 11/29/2017, 02/18/2010, Additional history exists GFR 04/08/2023 04/08/2022, 0203/2021, 12/21/2018, Additional history exists Albumin/Creatinine Ratio 03/26/2024 [...] filedocumented as of this encounter Care Teams Manager Star Relationship Specialty Start Date End Date Marcie Russell III, MD [address] [place] [address], [place] [address] PCP - General 09/23/00 documented as of this encounter
--- OUTSIDE RECORDS SUMMARY | 2023-04-06 19:26 | External Medical Summary | Summary of Care ---
Author Name Unknown Organization [facility] Address [address] [facility] [address] Phone [phone] Care Team Providers Care Commercial Loan Manager Name Role Phone French NIELSEN MD, Marcie Gunderson Primary Care Provider [phone] Reason for Visit * Reason Onset Date Comments Medication Refill 10/21/2022 Encounter Details Date Type Department Care Team Description 10/21/2022 Refill [facility] 200 [place] [address] Marcie Russell III, MD 200 [place] [address] Allergies No known active allergiesdocumented as of [...] Overview: Per Asthma Taxonomy EXTRINSIC ASTHMA, UNSPEC 06/03/20052009 Other allergic rhinitis 06/03/2005 04/08/19 Overview: ICD-10 update of inactive term Otitis media 01/30/2019 documented as of this encounter (statuses as of 10/22/2022) Immunizations Name Administration Dates Next Due DTaP - Dipth/Tet/Acell Pertussis 09/08/2000 DTaP HIB - Dipth/Tet/Acell Pert/HIB 07/1996,06/24/1995,04/22/1995,02/17 H1N1 2009 Influenza, IM 01/06/2009 Hepatitis B, 0-19 yrs 01/06/1996,04/22/1995,11/0 04/1994 IPV - Polio Virus Vaccine (Inact) 09/08/2000 [...] encounter Miscellaneous Notes * Telephone Encounter - Kate Grajeda LPN [...] preferred pharmacy and medication before forwarding?yes Pharmacy: [facility] [address] [place] [address] Pending Prescriptions: Disp Refills Torsemide 20 MG [...] if this is appropriate and sendto E [facility] [phone] [facility] if agreeable. Thank you, Susy Carbajal Artificial Flowers Dyer Centralized Clinical Pharmacy Services (CCPS) (Formerly Telepharmacy) [...] filedocumented as of this encounter Care Teams Commercial Loan Manager Relationship Specialty Start Date End Date French NIELSEN, Marcie Gunderson MD [address] [place] [id number] PCP - General 09/23/00 documented as of this encounter
--- OUTSIDE RECORDS SUMMARY | 2023-04-06 19:26 | External Medical Summary | Summary of Care ---
Author Name Unknown Organization [facility] Address [address] [facility] [address] Phone [phone] Care Team Providers Care Unit Supervisor Name Role Phone French NIELSEN MD, Marcie Gunderson Primary Care Provider [phone] Reason for Visit * Reason Onset Date Comments Medication Refill 10/21/2022 Encounter Details Date Type Department Care Team Description 10/21/2022 Refill [facility] 200 [facility] [address] Marcie Russell III, MD 200 [facility] [place] [place] [address] Allergies No known active allergiesdocumented as of this encounter (statuses as of 10/29/2022) Medications Medication Sig Dispensed Refills Start Date [...] as of this encounter (statuses as of 10/29/2022) Active Problems Problem Noted Date Super-super obese 04/08/2022 BIBI (obstructive sleep apnea) 04/08/2022 HTN, goal below 130/80 05/28/2016 documented as of this encounter (statuses as of 10/29/2022) Resolved Problems Problem Noted Date Resolved Date [...] as of this encounter (statuses as of 10/29/2022) Immunizations Name Administration Dates Next Due DTaP HIB - Dipth/Tet/Acell Pert/HIB 07/1996,06/24/1995,04/22/1995,02/17 DTaP Dipth/Tet/Acell Pertussis (Infanrix), Peds 09/08/2000 H1N1 2009 Influenza, IM 01/06/2009 Hepatitis B, 0-19 yrs 01/06/1996,04/22/1995,1104/1994 IPV - Polio Virus Vaccine (Inact) 09/08/2000 [...] encounter Miscellaneous Notes * Telephone Encounter - RUTH Hilario Tech [...] to make appt once back. Pt uses [facility] [address] [place] [address] If any questions can be reached at [phone]. Please review and advise. Thank You, Melisa Rosario, [facility] Information Security Consultant II Centralized Clinical Pharmacy Services (CCPS) (Formerly [...] preferred pharmacy and medication before forwarding?yes Pharmacy: [facility] [address] [place] [address] Pending Prescriptions: Disp Refills Torsemide 20 MG [...] if this is appropriate and sendto E [facility] [id number] if agreeable. Thank you, Susy Carbajal Manager Of Compensation Centralized Clinical Pharmacy Services (CCPS) (Formerly Telepharmacy) [...] filedocumented as of this encounter Care Teams Unit Supervisor Relationship Specialty Start Date End Date Marcie Russell III, MD [address] [place] [address], [place] [address] PCP - General 09/23/00 documented as of this encounter
--- OUTSIDE RECORDS SUMMARY | 2023-04-06 19:26 | External Medical Summary | Summary of Care ---
Author Name Unknown Organization [facility] Address [address] [place] [place] [address] Phone [phone] Care Team Providers Care Electric Appliance Installer Name Role Phone French NIELSEN MD, Brigido Gunderson Primary Care Provider [phone] Reason for Visit * Reason Onset Date Comments Med Request 10/08/2022 Encounter Details Date Type Department Care Team Description 10/08/2022 Telephone Family Practice [facility] 200 [place] [address] Brigido Braswell III, MD 200 [place] [address] Med Request Allergies No known active allergiesdocumented as of this encounter (statuses as of 10/09/2022) Medications Medication Sig Dispensed Refills Start Date [...] as of this encounter (statuses as of 10/09/2022) Active Problems Problem Noted Date Super-super obese 04/08/2022 BIBI (obstructive sleep apnea) 04/08/2022 HTN, goal below 130/80 05/28/2016 documented as of this encounter (statuses as of 10/09/2022) Resolved Problems Problem Noted Date Resolved Date [...] as of this encounter (statuses as of 10/09/2022) Immunizations Name Administration Dates Next Due H1N1 [...] at this time. Thank you, Loretta Cohn, Mixing Engineer I Centralized Clinical Pharmacy Services (Formerly Telepharmacy) [...] filedocumented as of this encounter Care Teams Electric Appliance Installer Relationship Specialty Start Date End Date Brigido Braswell III, MD [address] [place] [address], [place] [address] PCP - General 09/23/00 documented as of this encounter
--- OUTSIDE RECORDS SUMMARY | 2023-04-06 19:26 | External Medical Summary | Summary of Care ---
Author Name Unknown Organization [facility] Address [address] [place] [address] Phone [phone] Care Team Providers Care Personal Secretary Name Role Phone French NIELSEN MD, Brigido Gunderson Primary Care Provider [phone] Reason for Visit * Reason Onset Date Comments Advice 11/16/2022 Encounter Details Date Type Department Care Team Description 11/16/2022 Telephone Family Practice [facility] 200 [facility] [place] [address] Brigido Braswell III, MD 200 [place] [address] Advice Allergies No known active allergiesdocumented as of this encounter (statuses as of 11/17/2022) Medications Medication Sig Dispensed Refills Start Date [...] as of this encounter (statuses as of 11/17/2022) Active Problems Problem Noted Date BIBI (obstructive sleep apnea) 04/08/2022 HTN, goal below 130/80 05/28/2016 documented as of this encounter (statuses as of 11/17/2022) Resolved Problems Problem Noted Date Resolved Date [...] as of this encounter (statuses as of 11/17/2022) Immunizations Name Administration Dates Next Due H1N1 [...] encounter Miscellaneous Notes * Telephone Encounter - Reva Sorenson MD [...] demand for a few months. Please advise: [phone] documented in this encounter Plan of Treatment Upcoming Encounters Date Type Specialty Care Team Description 12/31/2022 Office Visit Family Medicine Reva Sorenson MD [address] [place] [address] 08/04/2023 Office Visit Neph[facility] Dill [facility] [address] [facility] [place] [address] Health Maintenance Due Date Last Done [...] filedocumented as of this encounter Care Teams Personal Secretary Relationship Specialty Start Date End Date Brigido Braswell III, MD [address] [place] [address] PCP - General 09/23/00 documented as of this encounter
--- OUTSIDE RECORDS SUMMARY | 2023-04-06 19:26 | External Medical Summary ---
Author Name Unknown Address Unknown Organization K01:[facility] [place] [address] [place] [address] Laboratory Report Ordering Provider Test Date Status BETTINA GREGORY 11/12/2022 14:29:41 Final Observation Date Value Abnormality Reference (Units ) Status HbA1C 11/12/2022 14:29:41 5.6 4.0-5.6 (% ) Final The use of HbA1c to monitor glycemic status is based on normal hemoglobin and HbA composition. This test should not be used in patients with abnormal hemoglobin that affects the half life of the red blood cell or the in vivo glycation rates. Glucose, estimated average 11/12/2022 14:29:41 114 <126 (mg/dL) Final Performing Location [facility] [place] [address] [place] [address]
--- OUTSIDE RECORDS SUMMARY | 2023-04-06 19:26 | External Medical Summary | Summary of Care ---
Author Name Unknown Organization [facility] Address [address] [facility] [address] Phone [phone] Care Team Providers Care Hairmasters Manager Name Role Phone French NIELSEN MD, Marcie Gunderson Primary Care Provider [phone] Reason for Visit * Reason Onset Date Comments Medication Refill 10/21/2022 Encounter Details Date Type Department Care Team Description 10/21/2022 Refill [facility] 200 [facility] [place] [address] Marcie Russell III, MD 200 [place] [address] Allergies No known active allergiesdocumented as of [...] as of this encounter Miscellaneous Notes * Addendum Note - Pollo Rhodes LPN - 10/30/2022 7:22 AM EDTAddended by: POLLO RHODES on: 10/30/2022 07:22 AM Modules accepted: Orders * Telephone Encounter - Pollo Rhodes LPN - 10/30/2022 7:22 AM EDT Next Office Visit: 11/12/2022 * Telephone Encounter - RUTH Hilario - 10/29/2022 5:55 PM EDT Transferred pt [...] to make appt once back. Pt uses [facility] [address] [address] [facility] If any questions can be reached at [phone]. Please review and advise. Thank You, Melisa Rosario, [facility] Associate Theatre Professor II Centralized Clinical Pharmacy Services (CCPS) (Formerly [...] preferred pharmacy and medication before forwarding?yes Pharmacy: [facility] [id number] [address] [facility] Pending Prescriptions: Disp Refills Torsemide 20 MG [...] Please advise if this is appropriate and sendbrad Gunderson [facility] [phone] [facility] if agreeable. Thank you, Susy Carbajal Property Clerk Centralized Clinical Pharmacy Services (CCPS) (Formerly Telepharmacy) 10/21/2022,9:46 AM documented in this encounter Plan of Treatment Upcoming Encounters Date Type Specialty Care Team Description 11/12/2022 Office Visit Family Medicine Reva Sorenson MD [address] [place] [address] Health Maintenance Due Date Last Done Comments [...] filedocumented as of this encounter Care Teams Hairmasters Manager Relationship Specialty Start Date End Date Marcie Russell III, MD [address] [place] [address] PCP - General 09/23/00 documented as of this encounter
--- OUTSIDE RECORDS SUMMARY | 2023-04-06 19:26 | External Medical Summary ---
Author Name Unknown Address Unknown Organization K01:[facility] [place] - [address] [place] [facility] [place] [address] Laboratory Report Ordering Provider Test Date Status BETTINA GREGORY 11/12/2022 14:29:41 Final Observation Date Value Abnormality Reference (Units ) Status Triglyceride 11/12/2022 14:29:41 106 <=174 ( mg/dL) Final Triglyceride Reference Range s (mg/dL):
<150 Acceptable
150-174 Borderline high
175-499 High
>=500 Very high Cholesterol 11/12/2022 14:29:41 178 <200 (mg /dL) Final Total Cholesterol Reference Ranges (mg/dL):
<200 Desirable
200-239 Borderline high
>=240 High HDL 11/12/2022 14:29:41 44 >39 (mg/dL ) Final HDL Cholesterol Reference Ra nges (mg/dL):
>=60 High (Desirable)
<50 Low (Undesirable) For Females
<40 Low (Undesirable) For Males NON-HDL CHOLESTEROL 11/12/2022 14:29:41 134 <=159 (mg/dL) Final Non-HDL Cholesterol Referenc e Range (mg/dL):
<100 Target level for high risk ASCVD patient
<130 Optimal for general population
130-159 Near optimal for general population
160-189 Borderline High
190-219 High
>=220 Very High LDL, (calculated) 11/12/2022 14:29:41 113 <= 129 (mg/dL) Final LDL Cholesterol Reference Ra nges (mg/dL):
<70 Target level for high risk ASCVD patient
<100 Optimal for general population
100-129 Near optimal for general population
130-159 Borderline high
160-189 High
>=190 Very high Performing Location [facility] [place] - [address] [facility] [address]
[2023-04-06 19:53] LABS: Potassium 3.7 mmol/L (3.5-5.1)
[2023-04-06 20:01] LABS: D Dimer 320 ug/L FEU (0-500)
[2023-04-06] MEDS: dexAMETHasone**PF** 10 MG/ML VIAL IV ONE (20:18)
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
[2023-04-06] MEDS: NSS + 20MEQ KCL 20 MEQ/1,000 ML BAG IV ONE (20:42)
[2023-04-06] MEDS: POTASSIUM CHLORIDE CRTAB 20 MEQ TABCR PO STA (20:42)
[2023-04-06 21:00] LABS: Magnesium 1.9 mg/dl (1.7-2.4)
[2023-04-06] MEDS: OSELTAMIVIR PHOSPHATE 75 MG CAP PO SCH (21:04)
[2023-04-06 21:30] LABS: Base Excess ABG 7.1 mEq/L (-9-1.8); HCO3 ABG 33 mmol/L (19-24); Oxygen Saturation ABG 94.7 % (90-95); PCO2 ABG 48 mmHg (35-46); PO2 ABG 70 mmHg (80-95); pH ABG 7.44 (7.35-7.45)
[2023-04-06] MEDS: Patient's WEIGHT Needed SCH (21:34)
[2023-04-06] MEDS: ACETAMINOPHEN 325 MG TAB PO STA (21:36)
[2023-04-06 21:40] LABS: Allen Test Pos (Pos)
[2023-04-06] MEDS: AZITHROMYCIN 500 MG in DEXTROSE 5% 250 ML IV STA (22:06)
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
[2023-04-06] MEDS ORDERED: PROMETHAZINE 12.5 MG/50.5 ML BAG IV PRN (22:36)
[2023-04-07] MEDS: MAGNESIUM SULFATE / D5W 1 GM/100 ML BAG IV ONE (00:20)
[2023-04-07] MEDS ORDERED: ACETAMINOPHEN 325 MG TAB PO PRN (00:39)
[2023-04-07] MEDS ORDERED: oxyCODONE HCL IR 5 MG TAB (IMMEDIATE RELEASE) PO PRN (00:39)
[2023-04-07] MEDS ORDERED: XOPENEX/ATROVENT 1.25mg/0.5MG NEB COMBO NEB SCH (01:00)
[2023-04-07] MEDS: IPRATROPIUM BROMIDE NEB SOLN 0.02% 0.5MG/2.5ML VIAL INH SCH (01:48)
[2023-04-07] MEDS: LEVALBUTEROL 1.25 MG/3 ML NEB NEB SCH (01:48)
[2023-04-07 04:31] LABS: BUN Creatinine Ratio 12.6 (10-20); Basophils # (auto) 0.01 K/uL (0.00-0.20); Basophils % (auto) 0.2 %; Calcium 9.1 mg/dl (8.6-10.3); Creatinine Clr Calc Pharmacy 210.4 ml/min; Est GFR (African American) 125.8 ml/min; Est GFR (Non-African American) 108.5 ml/min; Hematocrit (blood only) 49.2 % (42.0-52.0); Hemoglobin 15.7 g/dl (14.0-18.0); Immature Granulocytes # (auto) 0.08 K/uL (0.01-0.20); Immature Granulocytes % (auto) 1.4 %; Lymphocytes # (auto) 1.09 K/uL (1.20-3.40); Lymphocytes % (auto) 19.1 %; Mean Corpuscular Hemoglobin 25.7 pg (25.0-34.0); Mean Corpuscular Hgb Conc 31.9 g/dL (32.0-36.0); Mean Corpuscular Volume 80.5 fL (80.0-100.0); Mean Platelet Volume 9.8 fL (9.4-12.4); Monocytes # (auto) 0.26 K/uL (0.11-0.59); Monocytes % (auto) 4.6 %; Neutrophils # (auto) 4.26 K/uL (1.40-6.50); Neutrophils % (auto) 74.7 %; Platelet Count 231 K/uL (130-400); Potassium 4.1 mmol/L (3.5-5.1); RDW Coefficient of Variation 14.3 % (11.5-14.5); RDW Standard Deviation 41.5 fL (36.4-46.3); Red Blood Count 6.11 M/uL (4.70-6.10)
[2023-04-07] MEDS: methylPREDNISolone 40 MG in SYRINGE 0 ML IV SCH (07:53)
[2023-04-07] MEDS: AZITHROMYCIN 250 MG TAB PO SCH (07:53)
[2023-04-07] MEDS: AZITHROMYCIN 250 MG TAB PO ONE (07:54)
--- NOTE | 2023-04-07 13:03 | Hospitalist Progress Note ---
Date of Service April 07, 2023 Assessment & Plan (1) Acute hypoxic respiratory failure: (2) Influenza B: (3) Syncope: (4) Hypertension: (5) Tobacco use disorder: Plan: 27-year-old male with PMH of hypertension, BIBI on CPAP, chews tobacco who presents with coughing and recent illness and outpatient test positive for Flu B as of 04/05/23. at bedside reported patient had a syncopal episode that lasted about 45seconds following a coughing fit. He hit his head on closet door Patient was noted to have ox sats of 87% on RA in ER XR chest did not show acute abnormalities CT head did not show acute fracture/bleed Acute respiratory failure Influenza infection Syncope Continue tamiflu Continue nebs Continue steroids Wean oxygen as tolerated Continue supportive care Syncopal episode likely vasovagal/situational TTE though limited due to body habitus, was unremarkable Continue CPAP HS Continue home lisinopril and torsemide Patient has morbid obesityCounseled regarding obesity and need for weight loss DVT ppx: ambulate I spent a total of 50 minutes coordinating, documenting, and providing care for this patient excluding time spent in the performance of separately billed services. Admission and Anticipated Discharge Date Admission Date: April 06, 2023 Subjective Patient seen and examined Reports cough is improved with neb treatment Reported sinus congestion and chest congestion Denies dizziness, headache, nausea, vomiting, abd pain, diarrhea Physical Exam Constitutional: + well hydrated and + obese; no acute di stress Eyes: PERRL, conjunctivae normal, anicteric sclerae ENMT: external ear and nose normal, oropharynx normal Respiratory: normal respiratory effort; no respiratory distress Good air entry, +rhonchi On nasal cannula Cardiovascular: Rate/Rhythm: regular rate and regular rhythm S1 S2 Gastrointestinal (Abdomen): normal bowel sounds, soft, nontender, no hepatosplenomegaly Musculoskeletal: no cyanosis or clubbing, extremities motor strength 5/5 Neurologic: PERRL, EOMI, accommodation nl, no face palsy, no dysarthria Psychiatric: A+Ox3, euthymic affect Results & Data Results & Data Vital Signs (Past 12 Hours) Vital Signs Pulse Pulse Resp BP Pulse Ox O2 Del Method O2 Flow Rate 04/07/23 12:23 59 L 16 94 Nasal Cannula 3 04/07/23 12:00 63 22 93 04/07/23 12:00 150/78 H 04/07/23 10:00 62 94 04/07/23 10:00 142/90 H 04/07/23 09:57 67 16 96 04/07/23 09:57 154/83 H 04/07/23 08:01 156/105 H 04/07/23 08:01 62 15 96 04/07/23 08:00 61 20 95 04/07/23 07:33 66 04/07/23 07:01 60 18 96 CPAP 4 04/07/23 06:16 155/86 H 04/07/23 06:16 60 13 93 04/07/23 06:09 56 L 24 155/86 H 96 04/07/23 06:00 57 L 18 96 04/07/23 04:10 60 18 96 2 04/07/23 04:00 59 L 20 148/88 H 94 04/07/23 02:51 63 04/07/23 02:00 67 23 153/77 H 91 Nasal Cannula 2 04/07/23 01:48 65 18 94 Nasal Cannula 2 Laboratory Results Abnormal lab results 04/06/23 04/06/23 04/07/23 Range/Units 17:03 21:09 03:52 RBC 6.31 H 6.11 H (4.70-6.10) M/uL MCHC 31.5 L 31.9 L (32.0-36.0) g/dL RDW Coeff of Raymundo 14.6 H (11.5-14.5) % Lymph # (Auto) 1.09 L (1.20-3.40) K/uL [place] # (Auto) 1.06 H (0.11-0.59) K/uL ABG pCO2 48 H (35-46) mmHg ABG pO2 70 L (80-95) mmHg ABG HCO3 33 H (19-24) mmol/L ABG Base Excess 7.1 H (-9-1.8) mEq/L Glucose 127 H (70-99(Fasting)) mg/dl
[2023-04-07] MEDS: lisinopril 40 MG TAB PO SCH (21:02)
--- NOTE | 2023-04-08 05:26 | Electrocardiogram Report ---
Test Reason : Blood Pressure : / mmHG Vent. Rate : 095 BPM Atrial Rate : 095 BPM P-R Int : 126 ms QRS Dur : 100 ms QT Int : 358 ms P-R-T Axes : 033 080 018 degrees QTc Int : 449 ms Normal sinus rhythm Nonspecific ST abnormality No previous ECGs available Confirmed by Jitendra Canales ([id number]) on 04/08/2023 5:26:13 AM Referred By: REFERRED SELF Confirmed By:Jitendra Canales
[2023-04-08 05:33] LABS: Hematocrit (blood only) 48.3 % (42.0-52.0); Hemoglobin 15.6 g/dl (14.0-18.0); Mean Corpuscular Hemoglobin 25.5 pg (25.0-34.0); Mean Corpuscular Hgb Conc 32.3 g/dL (32.0-36.0); Mean Corpuscular Volume 79.1 fL (80.0-100.0); Platelet Count 285 K/uL (130-400); RDW Standard Deviation 39.9 fL (36.4-46.3); Red Blood Count 6.11 M/uL (4.70-6.10)
[2023-04-08 05:38] LABS: BUN Creatinine Ratio 15.5 (10-20); Calcium 9.2 mg/dl (8.6-10.3); Creatinine Clr Calc Pharmacy 218.7 ml/min; Est GFR (African American) 138.1 ml/min; Est GFR (Non-African American) 119.2 ml/min; Magnesium 2.2 mg/dl (1.7-2.4); Phosphorus 4.3 mg/dl (2.5-4.9)
[2023-04-08] MEDS: TORSEMIDE 20 MG TAB PO SCH (07:58)
--- NOTE | 2023-04-08 11:17 | Discharge Summary ---
Date of Service April 08, 2023 Admission HPI Per Admitting Provider This is a 27-year-old male with PMH of hypertension, BIBI on CPAP, tobacco use who presents with coughing and recent illness. Developed fever and chills yesterday as well as nausea, vomiting and diarrhea and was seen in a local urgent care, where he tested positive for flu B. Continue to feel poorly and developed worsening congestion and productive cough with associated shortness of breath. Had a coughing fit resulting in a witnessed syncopal episode by where he hit his head on his closet door on the way down and then came to lying on the floor. This event, along with a persistent shortness of breath, prompted visit to the ED. Is not on oxygen at baseline. Does have history of childhood asthma but does not needed an inhaler in years. Home medications include lisinopril and torsemide 40 mg in the morning for lower extremity swelling. Denies ever being told he has heart failure. Admission Exam Per Admitting Provider General Appearance: WD/WN, vitals as above, NAD, sitting up in bed, pleasant, morbidly obese Head: normocephalic, atraumatic Eyes: normal inspection, PERRL, conjunctivae normal, anicteric sclerae ENT: external ear and nose normal, dry mucous membranes of oropharynx Neck: normal visual inspection, trachea midline, no thyromegaly Respiratory: increased respiratory effort, lungs with diffuse rhonchi, scattered expiratory wheezing. No accessory muscle use Cardiovascular: regular rate, rhythm, no murmur, normal peripheral pulses, no BLE edema. Vessels: no JVD Chest: normal inspection of chest Abdomen/GI: normal bowel sounds, soft, nontender, no hepatosplenomegaly Extremities/Musculoskeletal: no cyanosis or clubbing, extremities motor stren [facility] Neurologic: PERRL, EOMI, accommodation nl, no face palsy, no dysarthria, CN's II-XI intact bilaterally and moves all extremities Psychiatric: A+Ox3, euthymic affect Skin: no rashes, normal color, warm/dry Principal Diagnosis Influenza Acute respiratory failure with hypoxia Syncope Discharge Exam Constitutional + well hydrated and + obese; no acute distress Eyes PERRL, conjunctivae normal, anicteric sclerae ENMT external ear and nose normal, oropharynx normal Respiratory normal respiratory effort; no respiratory distress Auscultation: lungs clear to auscultation bilaterally Cardiovascular Rate/Rhythm: regular rate and regular rhythm S1 S2 Gastrointestinal (Abdomen) normal bowel sounds, soft, nontender, no hepatosplenomegaly Musculoskeletal no cyanosis or clubbing, extremities motor strength 5/5 Neurologic PERRL, EOMI, accommodation nl, no face palsy, no dysarthria Psychiatric A+Ox3, euthymic affect Discharge Data Allergies Allergy/AdvReac Type Severity Reaction Status Date / Time No Known Allergies Allergy Mild Verified 04/06/23 20:36 Ordered Studies 04/06/23 21:37 CT head/brain wo con Stat Hospital Course (1) Acute hypoxic respiratory failure: (2) Influenza B: (3) Syncope: (4) Hypertension: (5) Tobacco use disorder: 27-year-old male with PMH of hypertension, BIBI on CPAP, chews tobacco who presents with coughing and recent illness and outpatient test positive for Flu B as of 04/05/23. at bedside reported patient had a syncopal episode that lasted about 45seconds following a coughing fit. He hit his head on closet door Patient was noted to have ox sats of 87% on RA in ER XR chest did not show acute abnormalities CT head did not show acute fracture/bleed Acute respiratory failure Influenza infection Syncope Patient had started tamiflu prior to admission This was continued He received nebs and steroid treatment Breathing improved and weaned off oxygen Patient reports feeling better today Lungs sounds clear today Ambulatory pulse ox did not indicate need for oxygen with activity Patient advised to continue tamiflu for 1 more day to complete treatment Syncopal episode likely vasovagal/situational TTE though limited due to body habitus, was unremarkable Continue CPAP HS Continue home lisinopril and torsemide Patient has morbid obesity. Counseled regarding obesity and need for weight loss Total Time Total Time Spent Total Time Spent (In Minutes): 35 Total Time Includes: Examination of the Patient, Discharge Planning and Medication Reconciliation Discharge Plan Discharge Items Patient Disposition: Home - Self-Care Reason For Visit: RESP FAILURE Discharge Diagnosis: Influenza Acute respiratory failure with hypoxia Syncope Activity: Resume your previous activity Non-emergency contact: Primary Care Provider Call non-emergency contact if: you have any medication questions and your sympto ms worsen Follow-up/Referrals: Brigido Braswell MD [Primary Care Provider] - (Date & Time 04/14/2023 11:00 AM Provider Poncho Baer, DO Department [facility] ) Diet: Heart Healthy Addtl Attending Provider Instructions: Mr Dodson You came to the hospital due to worsening cough, shortness of breath and sync opal episode. You were managed for the above listed diagnoses. Your symptoms have improved remarkably. You required oxygen briefly but this was successfully weaned off. You are being discharged home. Please continue your tamiflu till tomorrow to complete treatment. Please ensure follow up with your Primary Doctor. It was a pleasure taking care of you. Pending Studies at Discharge: No Stand-Alone Forms: My [facility] [place], Smoking Cessation Medications and DC Order Prescriptions: New albuterol sulfate 90 mcg/actuation HFA aerosol inhaler 1 inh inhalation Q6H PRN (Reason: shortness of breath or wheezing) Qty: 6.7 0RF guaifenesin 600 mg tablet extended release 12hr 600 mg PO BID 2 Days Qty: 4 0RF Continued lisinopril 40 mg Tablet 40 mg PO PM torsemide 20 mg tablet 40 mg PO QAM acetaminophen 500 mg Tablet 500 mg PO Q6H PRN (Reason: PAIN/FEVER) ibuprofen 200 mg Tablet 200 mg PO Q6H PRN (Reason: Pain) oseltamivir 75 mg capsule 75 mg PO BID Discharge Orders: Discharge Order (Routine); Ordered 04/08/23 Ordered By: Kathryn Díaz Admission Data Admit Date/Time: 04/06/23 22:24 Attending Provider: Kathryn Díaz I. Admit Provider: Pk Carias Primary Care Provider: Brigido Braswell Other Interventions: Discharge Summary Assessment (RN) Last Done: 04/08/23 11:29
== END 2023-04-08 12:25 | disposition home or self-care (01) | DRG 193 ==
LOC: ED 15:25 → EDINP 22:24 → 2W 04-07 21:49